=== PATIENT | female | born 1970 | race Caucasian/White ===

== ENCOUNTER 2018-10-22 12:41 | Inpatient (IN) | payer BC, SELFPAY ==
[2018-10-22] VITALS (7 sets, daily range): BP systolic 114–121; BP diastolic 68–78; PULSE 90–98; RESP 16–18; TEMP 37.2–37.3; O2SAT 96–99; BMI 19.3
--- NOTE | 2018-10-22 13:15 | PCM.HP.STD ---
Problem List (1) Small bowel obstruction due to adhesions Status: Acute (2) Acute dehydration Status: Acute (3) Hyponatremia Status: Acute (4) Hypochloremia Status: Acute (5) Hypokalemia Status: Acute (6) Hypokalemia due to loss of potassium Status: Acute History of Present Illness Date of Admission: 10/22/18 The patient is a 48 year old F who was transferred from [facility] for urgent surgical evaluation and management. The patient states that she does not have a routine primary care physician. In the past she has been seen at the [facility] but has not had a physician since Dr. Constance Smith left. The patient states that this is now day 6 of her illness. She has had intractable nausea and vomiting. Yesterday the cramping in her abdomen became extraordinarily severe. She did not seek assistance until going to [place] emergency room earlier today today. Her white blood cell count was noted to be relatively low at 4.9 with a hemoglobin elevated at 16.8 and hematocrit elevated at 47.7. Platelet count 267,000. 75% neutrophils 6% lymphocytes and 18% monocytes. Her sodium was low at 125. Potassium low at 3.2. Chloride low at 80. BUN elevated to 35. Creatinine elevated at 1.5. Albumin elevated at 5.3 and total protein elevated at 8.9. She had a CT scan of the abdomen pelvis performed there. Multiple dilated loops of small bowel with air-fluid levels. Dilated small bowel up to 3.8 cm in the pelvis and up to 4.8 cm in the right upper quadrant findings were felt to be consistent with a high-grade small bowel obstruction. It is of note that I have assisted the patient in May 2011. She had undergone per Dr. Vences a laparoscopic salpingo-oophorectomy and then had a postop hemorrhage. I performed a urgent exploratory laparotomy. A precise source of blood loss was not clearly identified. She was managed with transfusions and then did require transfer out because of the amount of blood loss and acute anticoagulated state. She had not previously had any abdominal surgery prior to that. It is of note that the patient continued to have pain subsequent to that and eventuated is having a vaginal hysterectomy also performed at [facility]. She had had a previous uterine ablation and it was felt that that was the source of her pelvic pain. Since her hysterectomy she has been relieved of the pain. Because of her previous emergency exploratory laparotomy she was not felt to be a candidate for any transabdominal approach to her hysterectomy. The patient denies any previous hospitalizations for small bowel obstruction. She denies any history of illness similar to this. She states that yesterday the pain was very severe. This morning she said that she had multiple repetitive bilious emesis and now actually feels improved. Written report detected after NG tube placement at [facility] she had 1 L of bilious material out with now very little return. The patient states that currently the NG tube is causing her discomfort but that she is not having significant abdominal pain. She cannot recall when she had her last flatus or bowel movement. Past Medical History Allergies ketamine Adverse Reaction (Verified 10/22/18 12:53) Nausea/Vom/Diarrhea Home Medications: Ambulatory Orders Medication Instructions Recorded Cyanocobalamin (Vitamin B-12) 1,000 mcg PO DAILY 10/22/18 [Vitamin B-12] Doxycycline Hyclate 20 mg PO DAILY 10/22/18 Lactobacillus Acidophilus 1 each PO DAILY 10/22/18 [Probiotic] Multivitamin [Once Daily] 1 each PO DAILY 10/22/18 Sertraline HCl [Zoloft] 100 mg PO DAILY 10/22/18 Surgical History: no surgical history Smoking Status: Never smoker Review of Systems Constitutional: Denies: Chills, Fever HEENT: Denies: Difficulty Swallowing Cardiovascular: Denies: Chest Pain, Claudication Respiratory: Denies: Cough Gastrointestinal: Reports: Abdominal Pain, Vomiting. Denies: Diarrhea Genitourinary: Denies: Dysuria Skin: Denies: Jaundice Neurological: Denies: Balance problems Psychiatric: Denies: Anxiety Endocrine: Denies: Change in Body Habitus VTE Information - Inpt Only VTE Present on Admission: No Patient Problems: Active and Suspected Problems Small bowel obstruction due to adhesions (Acute) Acute dehydration (Acute) Hyponatremia (Acute) Hypochloremia (Acute) Hypokalemia (Acute) Hypokalemia due to loss of potassium (Acute) - Physical Exam General: Alert, Oriented x3, Cooperative, - - Patient appears uncomfortable with NG tube in place HEENT: Atraumatic Oral: Dry Mucosa Neck: Supple, Negative Carotid Bruits Lungs: Clear to auscultation, Normal air movement Cardiovascular: Regular rate, Regular Rhythm Abdomen: Bowel Sounds Not Present, Distended, - - Diffusely distended. No bowel sounds. Mild diffuse tenderness slightly more so right lower quadrant. Mild guarding. No rebound. Long midline incision extending from superior to the umbilicus to the pubis. No palpable fascial defect. Groins supple nontender no focal mass Extremities: No clubbing Skin: No rashes Musculoskeletal: No Tenderness to Palpation of Joints or Extremities Lymphatic: No Cervical, Supraclavicular, or Inguinal Adenopathy Neurological: Cranial nerves II-XII grossly intact Psych/Mental Status: Normal Affect, Appropriate Vital Signs Temp Pulse Resp BP Pulse Ox 99.2 F H 98 16 121/78 H 98 10/22/18 12:57 10/22/18 12:57 10/22/18 12:57 10/22/18 12:57 10/22/18 12:57 Oxygen Delivery Method Room Air Weight: 112 lb 6.972 oz Body Mass Index (BMI) 19.3 Intake and Output for Last 24 Hours 10/20/18 10/21/18 10/22/18 23:59 23:59 23:59 Output Total 200 / 200 Balance -200 / -200 Assessment/Plan All Active Problems Small bowel obstruction due to adhesions (Acute) Acute dehydration (Acute) Hyponatremia (Acute) Hypochloremia (Acute) Hypokalemia (Acute) Hypokalemia due to loss of potassium (Acute) Findings are consistent with now a 6-day-old acute small bowel obstruction likely secondary to previous adhesions. She has electrolyte abnormalities related to intractable nausea and vomiting and inability of oral intake. The CT scan of her abdomen was quite remarkable with significant distended bowel however she is not currently complaining of abdominal pain. I recommend this moment that secondary to her severe dehydration and electrolyte abnormality that we replace and resuscitate. I will repeat laboratory and obtain a lactic acid level. Pending the patient's response to resuscitation she is aware that she may still be benefited from a exploratory laparotomy for intended lysis of adhesions and release of small bowel obstruction. Clinically however her abdomen does not appear to be overtly acute at this time. She will require very careful observation. She has had an opportunity to ask and have questions answered. We will continue the resuscitation repeat laboratory and make further decisions based upon her immediate progress. Kiko Liao M.D., F.A.C.S.
[2018-10-22 13:50] LABS: Absolute Lymphocyte Count 1.09 X10^3/ul (0.83-4.51); Absolute Neutrophil Count 3.3 X10^3/uL (2.0-7.7); Differential Indicated SCAN CRITERIA MET; Hematocrit 41.8 % (37-47); Hemoglobin 14.6 g/dl (12.0-15.0); Lymphocyte # 1.09 X10^3/ul (4.0); Lymphocyte % 24.1 % (19-41); Mean Corp Hgb Conc 34.9 g/gl (32-36); Mean Corpuscular Hgb 32.6 pg (27.0-32.0); Mean Corpuscular Volume 93.3 fL (81-99); Mean Platelet Vol. 10.9 fl (6.2-12.0); Monocyte# 0.11 X10^3/uL; Monocyte% 2.4 % (0-10); Neutrophil # 3.32 X10^3/uL (2.7-7.7); Neutrophil % 73.3 % (47-70); POSITIVE COUNT NO; POSITIVE DIFFERENTIAL NO; POSITIVE MORPHOLOGY YES; Platelet Count 221 K/mm3 (150-450); RBC Distribution Width CV 12.3 % (11.6-14.6); RBC Distribution Width SD 41.5 fl (35.1-43.9); Red Blood Count 4.48 M/mm3 (4.2-5.4); White Blood Count 4.5 K/mm3 (4.4-11.0)
[2018-10-22 14:04] LABS: Anion Gap 12 (5-15); BUN 22 mg/dL (7-18); BUN/Creat Ratio 22.3 RATIO (10-20); Calcium,Total 7.7 mg/dL (8.5-10.1); Chloride 90 mmol/L (98-107); Creatinine, Serum 0.99 mg/dL (0.55-1.02); EST Glomerular Filtration Rate 64 mL/min (>60); Est Glom Filt Rate - Afr Amer 77 mL/min (>60); Estimated Creatinine Clearance 55.95 ml/min; Glucose 118 mg/dL (74-106); Magnesium 2.4 mg/dL (1.6-2.6); Potassium 3.2 mmol/L (3.5-5.1); Sodium Level 130 mmol/L (136-145)
[2018-10-22 14:15] LABS: Lactic Acid 1.6 mmol/L (0.4-2.0)
[2018-10-22] MEDS: Potassium Chloride 10mEq/100mL 10 MEQ/100 ML IV.SOLN. 100 MEQ IV BOLUS ×3 (14:40→18:39)
[2018-10-22] MEDS: 0.9% Normal Saline 1,000 ML 200 ML IV (14:44)
[2018-10-22] MEDS: Magnesium Sulfate 1 GM in 0.9% Normal Saline 100 ML IV (15:35)
[2018-10-22] MEDS: 0.9% Normal Saline 1,000 ML 125 ML IV (18:39)
[2018-10-22] MEDS: LORazepam 2 MG/ML Syringe 0.5 MG IV (22:31)
[2018-10-22] MEDS: 0.9% NaCl Peripheral Flush Adult/Peds IV (22:32)
[2018-10-23] VITALS (8 sets, daily range): BP systolic 98–106; BP diastolic 52–67; PULSE 82–105; RESP 16; TEMP 36.5–37; O2SAT 93–100
--- NOTE | 2018-10-23 00:25 | NURSING ---
Gave report to Mikaela BRITO, taking over care at this time
[2018-10-23] MEDS: 0.9% Normal Saline 1,000 ML 125 ML IV (02:09)
--- NOTE | 2018-10-23 05:00 | RAD_ITS ---
STUDY: X-RAY - ABDOMEN/PELVIS REASON FOR EXAM: Female, 48 years old. Small bowel obstruction TECHNIQUE: 2 views COMPARISON: None. FINDINGS: There are numerous air-fluid levels. Small bowel obstruction suspected. There is no free intraperitoneal air. This a moderate degree of fecal stasis. There is a mild lumbar scoliosis with convexity to the left. RAD/Abd Inc Decub and/or Erect IMPRESSION: Suspicion of small bowel obstruction. Confirmation with a CT scan is suggested Electronically Signed: Miguel Bryson MD at 6:34 EST Tel , Service support ,
--- NOTE | 2018-10-23 05:37 | PCM.PN.SRG ---
Patient Problems: Active and Suspected Problems Small bowel obstruction due to adhesions (Acute) Acute dehydration (Acute) Hyponatremia (Acute) Hypochloremia (Acute) Hypokalemia (Acute) Hypokalemia due to loss of potassium (Acute) Subjective: Pt resting comfortably. Has had a small amount of flatus No current complaints. No abdominal pain or nausea - Physical Exam Abdomen: Soft, Hypoactive Bowel Sounds, - - diffusely slightly tender Vital Signs Temp Pulse Resp BP Pulse Ox 98.6 F 85 16 102/56 L 98 10/23/18 02:36 10/23/18 05:25 10/23/18 02:36 10/23/18 02:36 10/23/18 02:36 Oxygen Delivery Method Room Air Weight: 112 lb 6.972 oz Body Mass Index (BMI) 19.3 Intake and Output for Last 24 Hours 10/21/18 10/22/18 10/23/18 23:59 23:59 23:59 Intake Total 2168 / 2168 841 / 841 Output Total 1974 350 / 350 Balance 193 / 193 491 / 491 Laboratory Tests Past 24 Hrs 10/22/18 10/22/18 10/22/18 13:40 13:40 13:40 WBC 4.5 RBC 4.48 Hgb 14.6 Hct 41.8 MCV 93.3 MCH 32.6 H MCHC 34.9 RDW 12.3 RDW Differential 41.5 Plt Count 221 MPV 10.9 Immature Gran % (Auto) 0.200 Neut % (Auto) 73.3 H Lymph % (Auto) 24.1 [place] % (Auto) 2.4 Eos % (Auto) 0.0 Baso % (Auto) 0.0 Absolute Neuts (auto) 3.3 Absolute Lymphs (auto) 1.09 Total Counted Not Reportable Sodium 130 L Potassium 3.2 L Chloride 90 L Carbon Dioxide 28.0 Anion Gap 12 BUN 22 H Creatinine 0.99 Estim Creat Clear Calc 55.95 Est GFR (MDRD) Af Amer 77 Est GFR (MDRD) Non-Af 64 BUN/Creatinine Ratio 22.3 H Glucose 118 H Lactic Acid 1.6 Calcium 7.7 L Magnesium 2.4 Medical Necessity - Tobacco Use Smoking Status: Never smoker Assessment/Plan All Active Problems Small bowel obstruction due to adhesions (Acute) Acute dehydration (Acute) Hyponatremia (Acute) Hypochloremia (Acute) Hypokalemia (Acute) Hypokalemia due to loss of potassium (Acute) Need to mobilize pt AXR shows decreased small bowel loops but still present. Air seen within descending and rectosigmoid. Improved. NGT at diaphragm Will advance ngt. Continue suction for now Recheck mid day for progress Hopeful removal of ngt later today Labs pending
[2018-10-23] MEDS: 0.9% NaCl Peripheral Flush Adult/Peds IV (06:16)
[2018-10-23] MEDS: Ondansetron 4 MG/2 ML Vial IV (06:16)
[2018-10-23] MEDS: LORazepam 2 MG/ML Syringe 0.5 MG IV ×2 (06:16→22:19)
[2018-10-23] MEDS: BENZOCAINE/MENTHOL 1 LOZENGE 2 LOZENGE MUCOUS MEM (06:22)
--- NOTE | 2018-10-23 07:10 | NURSING ---
ADVANCED NGF 8CM PER ORDER. PT IS UP WALKING IN [place] WITH GAIT STEADY
[2018-10-23 07:21] LABS: Absolute Lymphocyte Count 0.59 X10^3/ul (0.83-4.51); Absolute Neutrophil Count 4.1 X10^3/uL (2.0-7.7); Basophil# 0.02 X10^3/uL; Basophil% 0.4 % (0-1); Eosinophil# 0.03 X10^3/uL; Eosinophils% 0.5 % (0-5); Hematocrit 39.5 % (37-47); Hemoglobin 13.5 g/dl (12.0-15.0); Lymphocyte # 0.59 X10^3/ul (4.0); Lymphocyte % 10.4 % (19-41); Mean Corp Hgb Conc 34.2 g/gl (32-36); Mean Corpuscular Hgb 32.8 pg (27.0-32.0); Mean Corpuscular Volume 95.9 fL (81-99); Mean Platelet Vol. 11.3 fl (6.2-12.0); Monocyte# 0.88 X10^3/uL; Monocyte% 15.5 % (0-10); Neutrophil % 72.1 % (47-70); Platelet Count 175 K/mm3 (150-450); RBC Distribution Width CV 12.4 % (11.6-14.6); RBC Distribution Width SD 42.3 fl (35.1-43.9); Red Blood Count 4.12 M/mm3 (4.2-5.4); White Blood Count 5.7 K/mm3 (4.4-11.0)
[2018-10-23 07:26] LABS: Anion Gap 11 (5-15); BUN 18 mg/dL (7-18); BUN/Creat Ratio 28.6 RATIO (10-20); Calcium,Total 7.3 mg/dL (8.5-10.1); Chloride 99 mmol/L (98-107); Creatinine, Serum 0.63 mg/dL (0.55-1.02); Differential Indicated SCAN CRITERIA MET; EST Glomerular Filtration Rate 107 mL/min (>60); Est Glom Filt Rate - Afr Amer 130 mL/min (>60); Estimated Creatinine Clearance 87.92 ml/min; Glucose 92 mg/dL (74-106); POSITIVE COUNT NO; POSITIVE DIFFERENTIAL YES; POSITIVE MORPHOLOGY YES; Potassium 2.8 mmol/L (3.5-5.1); Sodium Level 135 mmol/L (136-145)
[2018-10-23 07:51] LABS: Differential Comment SCANNED
[2018-10-23] MEDS: Potassium Chloride 10mEq/100mL 10 MEQ/100 ML IV.SOLN. 100 MEQ IV BOLUS ×6 (08:19→18:53)
[2018-10-23] MEDS: 0.9% Normal Saline 1,000 ML 80 ML IV ×2 (11:10→22:20)
[2018-10-23] MEDS: Acetaminophen 325 MG Tablet 650 MG PO (11:17)
--- NOTE | 2018-10-23 11:28 | CASEMGMT ---
ALISHA MEDLEY assessment: Face to Face with patient for initial transition planning/care coordination assessment. ALISHA MEDLEY introduced self and role at [facility], pt voices understanding and consents to assessment at this time. Pt is sitting up in chair in no distress at this time. Pt is A/Ox4 at this time and answers all questions appropriately at this time. Care providers, pharmacy, and demographics verified at this time. PCP: Devika Specialists: Keshawn, surg; deonna Roberson Preferred Pharmacy: [facility] Insurance: [place] Prescription Benefit: [place] Living Will/HPOA: Pt states has LW/HPOA and states her , Bebeto Perez, is HPOA. Pt is aware that we do not have AD on file at [facility] at this time. LNOK: Bebeto Perez, ; Sarai Freeman, mother Living Arrangements: Pt states lives with in house and states no concerns at home at this time. Pt is independent with ADL's. Transportation: Pt states drives self and states no transportation concerns at this time. DME/HHC: Pt states no current DME or need for any at this time. Pt states no hx of HHC or SNF in the past. Pt states no concerns with going home at time of discharge. 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 Pt states does not smoke but does drink ETOH, 'not always every day', per pt. Pt states no further concerns/needs at this time. Plan: [place] ALISHA MEDLEY
[2018-10-23 16:37] LABS: Potassium 3.6 mmol/L (3.5-5.1)
--- NOTE | 2018-10-23 17:13 | PCM.PN.BLA ---
Progress Note Pt re examined Abdomen still bloated but softer, Pos BS Tolerating ngt out Potassium being replaced K 3.6 Will hold at sips chips Mobilize pt
--- NOTE | 2018-10-23 22:00 | NURSING ---
pt continues to ambulate around unit halls; she and her daughter have made multiple labs around the unit. pt tolerates activity well.
[2018-10-24] VITALS (7 sets, daily range): BP systolic 102–117; BP diastolic 59–68; PULSE 83–94; RESP 16–17; TEMP 36.7–37.4; O2SAT 94–97; BMI 19.2
--- NOTE | 2018-10-24 06:54 | PCM.PN.SRG ---
Patient Problems: Active and Suspected Problems Small bowel obstruction due to adhesions (Acute) Acute dehydration (Acute) Hyponatremia (Acute) Hypochloremia (Acute) Hypokalemia (Acute) Hypokalemia due to loss of potassium (Acute) Subjective: Pt denies pain. Has continued with flatus and small amount of stool. She still feels bloated - Physical Exam Abdomen: Bowel Sounds Present, Soft, Non Tender, - - mildly distended Vital Signs Temp Pulse Resp BP Pulse Ox 98.4 F 91 16 103/59 L 97 10/24/18 05:30 10/24/18 05:30 10/24/18 05:30 10/24/18 05:30 10/24/18 05:30 Oxygen Delivery Method Room Air Weight: 112 lb 6.972 oz Body Mass Index (BMI) 19.3 Intake and Output for Last 24 Hours 10/22/18 10/23/18 10/24/18 23:59 23:59 23:59 Intake Total 2168 / 2168 2156 / 2156 1060 / 1060 Output Total 1974 / 1974 450 / 450 300 / 300 Balance 193 / 193 1706 / 1706 760 / 760 Laboratory Tests Past 24 Hrs 10/23/18 10/23/18 10/23/18 06:55 06:55 15:52 WBC 5.7 RBC 4.12 L Hgb 13.5 Hct 39.5 MCV 95.9 MCH 32.8 H MCHC 34.2 RDW 12.4 RDW Differential 42.3 Plt Count 175 MPV 11.3 Immature Gran % (Auto) 1.100 H Neut % (Auto) 72.1 H Lymph % (Auto) 10.4 L [place] % (Auto) 15.5 H Eos % (Auto) 0.5 Baso % (Auto) 0.4 Absolute Neuts (auto) 4.1 Absolute Lymphs (auto) 0.59 L Total Counted Not Reportable Differential Comment SCANNED Sodium 135 L Potassium 2.8 L 3.6 Chloride 99 Carbon Dioxide 25.0 Anion Gap 11 BUN 18 Creatinine 0.63 Estim Creat Clear Calc 87.92 Est GFR (MDRD) Af Amer 130 Est GFR (MDRD) Non-Af 107 BUN/Creatinine Ratio 28.6 H Glucose 92 Calcium 7.3 L Medical Necessity - Tobacco Use Smoking Status: Never smoker Assessment/Plan All Active Problems Small bowel obstruction due to adhesions (Acute) Acute dehydration (Acute) Hyponatremia (Acute) Hypochloremia (Acute) Hypokalemia (Acute) Hypokalemia due to loss of potassium (Acute) Will start clears and advance as tolerated SBO is improved but not completely resolved
[2018-10-24 07:07] LABS: Potassium 3.4 mmol/L (3.5-5.1)
[2018-10-24] MEDS: Potassium Chloride 10mEq/100mL 10 MEQ/100 ML IV.SOLN. 100 MEQ IV BOLUS ×6 (09:05→22:09)
--- NOTE | 2018-10-24 10:41 | NURSING ---
Pt resting in bed working on her laptop. Pt receiving 2 more potassium chloride 10meq bags per order from Dr. Liao for K+ 3.4 this AM. Pt denies pain or burning at infusion site, tolerating well. VSS.
--- NOTE | 2018-10-24 11:32 | NURSING ---
PT UP AMBULATING IN [place], TOLERATING WELL.
[2018-10-24] MEDS: Acetaminophen 325 MG Tablet 650 MG PO ×2 (13:59→22:06)
[2018-10-24] MEDS: LORazepam 2 MG/ML Syringe 0.5 MG IV ×2 (14:17→22:07)
--- NOTE | 2018-10-24 14:21 | NURSING ---
Pt's daughter in the room. Pt c/o pain in her abdomen all quadrants, rates a 3 on pain scale. States aching and stabbing at times. Given Tylenol 650mg po per order. Pt requesting Ativan so she can rest. Given Ativan 0.5mg IV per order.
--- NOTE | 2018-10-24 15:11 | NURSING ---
Pt sleeping quietly, daughter in room. Daughter states her mom is feeling better. Pt not awakened at this time for assessment of pain control.
--- NOTE | 2018-10-24 16:10 | NURSING ---
Pt awake c/o abdominal pain, rates a 6 on pain scale. BS hyperactive x 4, abd distended, soft and tender. Will notify Dr. Liao of changes.
--- NOTE | 2018-10-24 17:55 | PN_ITS ---
Progress Note Notified that patient mid afternoon has developed nausea cramping and recurrent abdominal distention She felt extremely well this morning. No pain whatsoever. We initiated her on clear liquids. She was ambulating well. She states that approximately 130 she developed some cramping. She did pass a moderate stool and had flatus. Now she has not had flatus for at least 4-5 hours. She feels nauseated.. She has an emesis bag at the ready. She states her pain is a 6. It is similar to previous pain episodes that she has had in between times of previous emesis. Patient looks uncomfortable but not in distress Abdomen is now more distended. She is not focally tender to palpation. Bowel sounds are intermittent with tinkles and rushes. At this point it appears that her small bowel obstruction is failing conservative measures. She has had her sodium and chloride and potassium previously replaced. I am recommending a NG tube be placed to low continuous suction. A abdominal x- rays will be checked with that placement. I will obtain stat BMP and CBC and lactic acid level. If that is dramatically abnormal then recommend proceeding later tonight with exploratory laparotomy. Unfortunately the current OR situation is occupied anticipated to approximately 10 PM. If the patient is improved with NG tube decompression as she was before and if the laboratory is not remarkable that I recommend decompression of the stomach and small bowel again hopefully allowing for a less risky expiration. I would then recommend exploratory laparotomy tomorrow as OR timing permits. The patient and her are aware of the technique, benefits, risks, alternatives. I have ordered stat laboratory NG tube and x-ray. We will proceed pending those results. Kiko Liao M.D., F.A.C.S.
[2018-10-24] MEDS: Lactated Ringers 1,000 ML 100 ML IV (18:06)
[2018-10-24 18:28] LABS: Anion Gap 11 (5-15); BUN 9 mg/dL (7-18); BUN/Creat Ratio 17.5 RATIO (10-20); Chloride 103 mmol/L (98-107); Creatinine, Serum 0.51 mg/dL (0.55-1.02); EST Glomerular Filtration Rate 136 mL/min (>60); Est Glom Filt Rate - Afr Amer 164 mL/min (>60); Estimated Creatinine Clearance 108.61 ml/min; Glucose 94 mg/dL (74-106); Potassium 3.2 mmol/L (3.5-5.1); Sodium Level 138 mmol/L (136-145)
[2018-10-24 18:36] LABS: Absolute Neutrophil Count 2.4 X10^3/uL (2.0-7.7); Basophil# 0.01 X10^3/uL; Basophil% 0.3 % (0-1); Eosinophil# 0.09 X10^3/uL; Eosinophils% 2.3 % (0-5); Hematocrit 39.6 % (37-47); Hemoglobin 13.4 g/dl (12.0-15.0); Lymphocyte % 17.5 % (19-41); Mean Corp Hgb Conc 33.8 g/gl (32-36); Mean Corpuscular Hgb 32.1 pg (27.0-32.0); Mean Platelet Vol. 10.8 fl (6.2-12.0); Monocyte% 20.1 % (0-10); Neutrophil # 2.38 X10^3/uL (2.7-7.7); Neutrophil % 59.5 % (47-70); Platelet Count 211 K/mm3 (150-450); RBC Distribution Width CV 12.4 % (11.6-14.6); RBC Distribution Width SD 42.8 fl (35.1-43.9); Red Blood Count 4.17 M/mm3 (4.2-5.4)
[2018-10-24 18:39] LABS: POSITIVE COUNT NO; POSITIVE DIFFERENTIAL NO; POSITIVE MORPHOLOGY NO
--- NOTE | 2018-10-24 19:01 | RAD_ITS ---
STUDY: X-RAY - ABDOMEN/PELVIS REASON FOR EXAM: Female, 48 years old. NG tube placement TECHNIQUE: 1 view COMPARISON: None. FINDINGS: The enteric tube is well below the gastroesophageal junction with one broad loop in the upper portion of the stomach. Multiple distended small bowel loops remain visualized in the central upper abdomen and a paucity of visible colon content consistent with small bowel obstruction. There is no demonstrated free abdominal air. Negative for gross organomegaly. Normal soft tissue structures. Normal visualized osseous structures. RAD/Abdomen Single View (Portable) IMPRESSION: The enteric tube is well below the gastroesophageal junction with one broad loop in the upper portion of the stomach. Radiographic findings consistent with small bowel obstruction. Electronically Signed: Belén Card MD at 19:48 EST , Service support ,
--- NOTE | 2018-10-24 19:03 | NURSING ---
NG TUBE INSERTED IN LEFT NARE PER TOYA RN, PER PHYSICIAN ORDER, RETURN OF 300CC OR GREEN FLUID, PT HAD ABOUT 500CC EMESIS (GREEN FLUID) DURING INSERTION. SUPPORT GIVEN.
--- NOTE | 2018-10-24 19:40 | PCM.PN.BLA ---
Progress Note Will replace K and plan exploratory lap tomorrow. Lactic acid only 1 R.Keshawn
[2018-10-24] MEDS: 0.9% NaCl Peripheral Flush Adult/Peds IV (22:18)
[2018-10-25] VITALS (9 sets, daily range): BP systolic 101–115; BP diastolic 62–80; PULSE 85–103; RESP 15–18; TEMP 36.2–37.4; O2SAT 94–100
[2018-10-25] MEDS: 0.9% NaCl Peripheral Flush Adult/Peds IV ×4 (01:57→05:40)
[2018-10-25] MEDS: HYDROmorphone 1 MG/ML Syringe IV ×5 (02:33→23:26)
[2018-10-25] MEDS: Lactated Ringers 1,000 ML 100 ML IV ×2 (03:03→16:28)
--- NOTE | 2018-10-25 05:39 | PCM.PN.SRG ---
Patient Problems: Active and Suspected Problems Small bowel obstruction due to adhesions (Acute) Acute dehydration (Acute) Hyponatremia (Acute) Hypochloremia (Acute) Hypokalemia (Acute) Hypokalemia due to loss of potassium (Acute) Subjective: Pt c/o left nares pain with ngt Less nausea and much less abdominal pain with decompression - Physical Exam Abdomen: Soft, Non Tender, Hypoactive Bowel Sounds Vital Signs Temp Pulse Resp BP Pulse Ox 98.8 F 103 H 16 115/74 95 10/25/18 03:00 10/25/18 03:00 10/25/18 03:00 10/25/18 03:00 10/25/18 03:00 Oxygen Delivery Method Room Air Weight: 112 lb 6.972 oz Body Mass Index (BMI) 19.2 Intake and Output for Last 24 Hours 10/23/18 10/24/18 10/25/18 23:59 23:59 23:59 Intake Total 2156 / 2156 3196 / 3196 Output Total 450 / 450 1450 / 1450 Balance 1706 / 1706 1746 / 1746 Laboratory Tests Past 24 Hrs 10/24/18 10/24/18 10/24/18 06:50 18:07 18:07 WBC 4.0 L RBC 4.17 L Hgb 13.4 Hct 39.6 MCV 95.0 MCH 32.1 H MCHC 33.8 RDW 12.4 RDW Differential 42.8 Plt Count 211 MPV 10.8 Immature Gran % (Auto) 0.300 Neut % (Auto) 59.5 Lymph % (Auto) 17.5 L [place] % (Auto) 20.1 H Eos % (Auto) 2.3 Baso % (Auto) 0.3 Absolute Neuts (auto) 2.4 Absolute Lymphs (auto) 0.70 L Total Counted Not Reportable Sodium 138 Potassium 3.4 L 3.2 L Chloride 103 Carbon Dioxide 24.0 Anion Gap 11 BUN 9 Creatinine 0.51 L Estim Creat Clear Calc 108.61 Est GFR (MDRD) Af Amer 164 Est GFR (MDRD) Non-Af 136 BUN/Creatinine Ratio 17.5 Glucose 94 Lactic Acid Calcium 8.0 L 10/24/18 18:07 WBC RBC Hgb Hct MCV MCH MCHC RDW RDW Differential Plt Count MPV Immature Gran % (Auto) Neut % (Auto) Lymph % (Auto) [place] % (Auto) Eos % (Auto) Baso % (Auto) Absolute Neuts (auto) Absolute Lymphs (auto) Total Counted Sodium Potassium Chloride Carbon Dioxide Anion Gap BUN Creatinine Estim Creat Clear Calc Est GFR (MDRD) Af Amer Est GFR (MDRD) Non-Af BUN/Creatinine Ratio Glucose Lactic Acid 1.0 Calcium Medical Necessity - Tobacco Use Smoking Status: Never smoker Assessment/Plan All Active Problems Small bowel obstruction due to adhesions (Acute) Acute dehydration (Acute) Hyponatremia (Acute) Hypochloremia (Acute) Hypokalemia (Acute) Hypokalemia due to loss of potassium (Acute) Replacing magnesium and potassium Checking labs Plan for exploratory laparotomy today
[2018-10-25 07:14] LABS: BUN 8 mg/dL (7-18); Creatinine, Serum 0.44 mg/dL (0.55-1.02); Glucose 82 mg/dL (74-106)
[2018-10-25 07:15] LABS: Anion Gap 12 (5-15); BUN/Creat Ratio 18.1 RATIO (10-20); Calcium,Total 7.5 mg/dL (8.5-10.1); Chloride 101 mmol/L (98-107); EST Glomerular Filtration Rate 161 mL/min (>60); Est Glom Filt Rate - Afr Amer 195 mL/min (>60); Estimated Creatinine Clearance 125.89 ml/min; Potassium 3.6 mmol/L (3.5-5.1); Sodium Level 136 mmol/L (136-145)
--- NOTE | 2018-10-25 10:30 | MISC_PTH ---
PATIENT: ELIZA WELLINGTON LOC: MS3 U#:[id number] AGE/SX: 48/F ROOM: MT314 RE10/22/[address]: Dr. Kiko Liao MD : 1970 BED: 1 DIS: 10/29/2018 SPEC #: [id number] RECD: 10/27/18 09:00 STATUS: STEPHEN REMadisyn #: [id number] JAGRUTI: 10/25/18 10:[address]: Kiko Liao DEPT: SURGICAL PATHOLOGY RECD BY: Curt Richey ENTERED: 10/27/18 11:38 SP TYPE: MISC CHRISTIANO DR: Dr. Katie Fortune MD Tissues: MECKEL'S DIVERTICULUM Procedures: Surgery Specimen Level III HEADER OPERATION: Exploratory laparotomy for small bowel obstruction PRE-OP DIAGNOSIS: Small bowel obstruction TISSUE SUBMITTED: Meckel's diverticulum MICROSCOPIC DIAGNOSIS Meckel's diverticulum, excision: Small bowel diverticulum consistent with Meckel's diverticulum with associated minimal chronic inflammation. No evidence of dysplasia. AM:rg 10/28/18 COMMENT Case has been reviewed in consultation with Dr. Lindsey who concurs with the above diagnosis. IDC:CE MICROSCOPIC DESCRIPTION Slides are reviewed. GROSS DESCRIPTION Received in fixative is one container labeled with the patient's name and designated Meckel's diverticulum. The specimen consists of an irregular fragment of light concepcion, glistening soft tissue measuring 2 x 1 x 0.8 cm. The specimen is bisected along its long axis and totally submitted. / AM:cisco 10/27/18 TC:5 CPT: 33436
[2018-10-25] MEDS: BUPIVACAINE LIPOSOME/PF 20 ML VIAL OPERA.SITE (12:10)
[2018-10-25] MEDS: Bupivacaine 0.25% 30 ML Vial (12:10)
--- NOTE | 2018-10-25 12:33 | PCM.OPRPT ---
Problem List (1) Small bowel obstruction due to adhesions Status: Acute (2) Acute dehydration Status: Acute (3) Hyponatremia Status: Acute (4) Hypochloremia Status: Acute (5) Hypokalemia Status: Acute (6) Hypokalemia due to loss of potassium Status: Acute Report of Operation Date of Procedure: 10/25/18 Pre-Operative Diagnosis: Non-resolving acute small bowel obstruction Post-Operative Diagnosis: Multiple intra-abdominal adhesions. Small bowel obstruction secondary to tight adhesive band. Meckel's diverticulum Surgery/Procedure Performed:: Exploratory laparotomy with one and three-quarter hours lysis of adhesions and release of small bowel obstruction. Meckel's diverticulectomy Description of Surgical Findings:: Timeout and informed consent was obtained. 48-year-old female was taken down from placement table. She underwent general endotracheal intubation anesthesia. Cefotetan 2 g given intravenously preoperatively. The abdomen was sterilely prepped and draped. The patient has a previous infraumbilical midline incision. I elliptically excised the skin scar. The scar was inspected and discarded. Sharp dissection carried down through the subcutaneous tissue and linea alba. Immediately adhesions of small bowel and omentum to the anterior abdominal wall were encountered. Tedious sharp and blunt dissection was required to gradually free the omentum and portions of small bowel from the anterior abdominal wall. This had to be performed bilaterally. I actually had to extend the incision slightly superiorly all the way to the umbilicus in order to gain exposure. The bowel was noted to be edematous. It was rather fragile. I initiated with multiple lysis of adhesions sharply and bluntly. Multiple loops of bowel were adherent to each other and it was difficult to identify the potential site of obstruction. There were multiple areas where there appeared to be strings of fibrous tissue. It was during 1 of maneuvers to help evacuate bowel from the pelvis that a tight adhesive band in the right lower quadrant area was encountered. I released that and clearly was the source of obstruction. The bowel was impinged upon but sterile appeared to be viable. Unfortunately there were further intermittent bands that I could palpate so I continued with the sharp lysis of adhesions. The obstruction was within a foot and a half of the ileocecal valve. There was just proximal that located a Meckel's diverticulum though it did not appear to be related to the adhesive band. I performed a Meckel's diverticulectomy very simply with a TA 60 stapler. The specimen was delivered. There were then multiple loops of ileum that were densely distended and adherent to each other. I freed adhesions to the degree that I could get that portion of bowel up into the wound and exposed. There were no focal areas of obstruction with in that dense massive adhesions. The adhesions were very dense making it extraordinarily difficult to decipher one loop of bowel from the other. I felt that there was high risk of enterotomy because of the edema of the bowel and the denseness of the adhesions. There was no site of infection or obstruction. I then was able to continue to trace the bowel proximally it was adherent to the transverse and sigmoid colon continue to lyse it I found several more adhesive bands which I cannot and then finally was able to get the bowel that was distended but free in the left upper quadrant. I felt that I had cleanly release the site of obstruction had identified that although there were mild adhesions of bowel the bowel still remaining that there was no source of obstruction in that area. Having accomplished that felt that hemostasis was intact. Throughout the procedure were needed a couple small serosal areas of tenuousness were repaired with [id number] sutures of 4-0 silk several areas that required hemostasis was approximated with interrupted 4-0 silk. There were no through and through enterotomies there was no spillage of contents. The small bowel was then placed back within the abdomen. The greater omentum was placed overlying. The midline wound was closed with a running #1 PDS. Subcutaneous flaps were raised. Subcutaneous tissue approximated with several interrupted 3-0 Vicryl sutures. The skin edges proximal a running septic or 4-0 Monocryl. Prior to closure I did attempt under palpation to perform a tap block bilaterally by injecting 20 cc of Exparel mixed with 10 cc of saline and 20 cc of 0.25% Marcaine. I performed that bilaterally mostly done under palpation. I further injected the incision itself the fascia and the skin and subtenons tissue. I used an additional 10 cc of 0.25% Marcaine for that. Steri-Strips Telfa and OpSite dressing applied. Sponge and instrument and needle counts were reported the surgeon be correct. Blood loss 50 cc. She tolerated the procedure well she was taken to the recovery room in satisfactory condition without apparent complication. Because of the patient having left nares pain the NG tube during the case was moved to the right nares. By palpation I confirmed positioning in the stomach. Kiko Liao M.D., F.A.C.S. Type of Anesthesia:: General Anesthesiologist: Kvng Theodore
--- NOTE | 2018-10-25 13:00 | PCM.PN.BLA ---
Progress Note Pt has had previous medical bleeding s/p surgery Will use mobilization and scds and cancel lovenox for dvt prophylaxis secondary to extent of dissection and bleeding risk.
[2018-10-25] MEDS: LORazepam 2 MG/ML Syringe 0.5 MG IV (18:12)
[2018-10-26 02:00] VITALS: BP 108/67; PULSE 100; RESP 16; TEMP 37.3; O2SAT 95
[2018-10-26] MEDS: Lactated Ringers 1,000 ML 100 ML IV ×3 (02:11→20:37)
[2018-10-26] MEDS: Ondansetron 4 MG/2 ML Vial IV (04:36)
[2018-10-26] MEDS: HYDROmorphone 1 MG/ML Syringe IV ×4 (04:36→23:29)
[2018-10-26 06:39] LABS: Absolute Lymphocyte Count 0.79 X10^3/ul (0.83-4.51); Basophil# 0.01 X10^3/uL; Basophil% 0.1 % (0-1); Eosinophil# 0.06 X10^3/uL; Eosinophils% 0.9 % (0-5); Hematocrit 34.3 % (37-47); Hemoglobin 11.3 g/dl (12.0-15.0); Lymphocyte # 0.79 X10^3/ul (4.0); Lymphocyte % 11.7 % (19-41); Mean Corp Hgb Conc 32.9 g/gl (32-36); Mean Corpuscular Hgb 31.1 pg (27.0-32.0); Mean Corpuscular Volume 94.5 fL (81-99); Mean Platelet Vol. 10.2 fl (6.2-12.0); Monocyte# 0.95 X10^3/uL; Neutrophil # 4.96 X10^3/uL (2.7-7.7); Neutrophil % 73.2 % (47-70); Platelet Count 250 K/mm3 (150-450); RBC Distribution Width CV 12.6 % (11.6-14.6); RBC Distribution Width SD 43.9 fl (35.1-43.9); Red Blood Count 3.63 M/mm3 (4.2-5.4); White Blood Count 6.8 K/mm3 (4.4-11.0)
[2018-10-26 06:42] LABS: Differential Indicated SCAN CRITERIA MET; POSITIVE COUNT NO; POSITIVE DIFFERENTIAL NO; POSITIVE MORPHOLOGY YES
[2018-10-26 07:07] LABS: Anion Gap 14 (5-15); BUN 7 mg/dL (7-18); BUN/Creat Ratio 13.5 RATIO (10-20); Calcium,Total 7.3 mg/dL (8.5-10.1); Chloride 101 mmol/L (98-107); Creatinine, Serum 0.52 mg/dL (0.55-1.02); EST Glomerular Filtration Rate 134 mL/min (>60); Est Glom Filt Rate - Afr Amer 163 mL/min (>60); Estimated Creatinine Clearance 106.52 ml/min; Glucose 86 mg/dL (74-106); Potassium 3.6 mmol/L (3.5-5.1); Sodium Level 137 mmol/L (136-145)
[2018-10-26 07:14] LABS: Toxic Granulation RARE
--- NOTE | 2018-10-26 08:29 | PCM.PN.SRG ---
Patient Problems: Active and Suspected Problems Small bowel obstruction due to adhesions (Acute) Acute dehydration (Acute) Hyponatremia (Acute) Hypochloremia (Acute) Hypokalemia (Acute) Hypokalemia due to loss of potassium (Acute) Subjective: Patient is not passing any flatus. She has an NG tube in place still. She is complaining of diffuse abdominal pain. - Physical Exam General: Alert, Oriented x3, Cooperative Cardiovascular: Regular rate, Regular Rhythm Abdomen: Soft, Distended, Tender - Diffuse tenderness to palpation, - - Incision is clean dry and intact the dressing is dry. Vital Signs Temp Pulse Resp BP Pulse Ox 99.1 F 100 16 108/67 95 10/26/18 02:00 10/26/18 02:00 10/26/18 02:00 10/26/18 02:00 10/26/18 02:00 Oxygen Delivery Method Room Air Weight: 112 lb 6.972 oz Body Mass Index (BMI) 19.2 Intake and Output for Last 24 Hours 10/24/18 10/25/18 10/26/18 23:59 23:59 23:59 Intake Total 3196 / 3196 5347 / 5347 754 / 754 Output Total 1450 / 1450 1700 / 1700 600 / 600 Balance 1746 / 1746 3647 / 3647 154 / 154 Laboratory Tests Past 24 Hrs 10/26/18 10/26/18 06:14 06:14 WBC 6.8 RBC 3.63 L Hgb 11.3 L Hct 34.3 L MCV 94.5 MCH 31.1 MCHC 32.9 RDW 12.6 RDW Differential 43.9 Plt Count 250 MPV 10.2 Immature Gran % (Auto) 0.100 Neut % (Auto) 73.2 H Lymph % (Auto) 11.7 L [place] % (Auto) 14.0 H Eos % (Auto) 0.9 Baso % (Auto) 0.1 Absolute Neuts (auto) 5.0 Absolute Lymphs (auto) 0.79 L Total Counted Not Reportable Differential Comment Toxic Granulation RARE Sodium 137 Potassium 3.6 Chloride 101 Carbon Dioxide 22.0 Anion Gap 14 BUN 7 Creatinine 0.52 L Estim Creat Clear Calc 106.52 Est GFR (MDRD) Af Amer 163 Est GFR (MDRD) Non-Af 134 BUN/Creatinine Ratio 13.5 Glucose 86 Calcium 7.3 L Medical Necessity - Tobacco Use Smoking Status: Never smoker Assessment/Plan All Active Problems Small bowel obstruction due to adhesions (Acute) Acute dehydration (Acute) Hyponatremia (Acute) Hypochloremia (Acute) Hypokalemia (Acute) Hypokalemia due to loss of potassium (Acute) 48-year-old female small bowel obstruction status post laparotomy and lysis of adhesions, POD 1 1. Patient continues to have output from her NG but it appears clear and nonbilious. Her abdomen is still diffusely tender and she is not passing any flatus. Continue n.p.o. and NG until patient is passing flatus and less distended. Dimitrios Lopes MD Pager: [facility] [address] [place] [address], [address] [place] [phone] Office:
--- NOTE | 2018-10-26 08:45 | PN.SURG_ITS ---
Patient Problems: Active and Suspected Problems Small bowel obstruction due to adhesions (Acute) Acute dehydration (Acute) Hyponatremia (Acute) Hypochloremia (Acute) Hypokalemia (Acute) Hypokalemia due to loss of potassium (Acute) Subjective: Patient is not passing any flatus. She has an NG tube in place still. She is complaining of diffuse abdominal pain. - Physical Exam General: Alert, Oriented x3, Cooperative Cardiovascular: Regular rate, Regular Rhythm Abdomen: Soft, Distended, Tender - Diffuse tenderness to palpation, - - Incision is clean dry and intact the dressing is dry. Vital Signs Temp Pulse Resp BP Pulse Ox 99.1 F 100 16 108/67 95 10/26/18 02:00 10/26/18 02:00 10/26/18 02:00 10/26/18 02:00 10/26/18 02:00 Oxygen Delivery Method Room Air Weight: 112 lb 6.972 oz Body Mass Index (BMI) 19.2 Intake and Output for Last 24 Hours 10/24/18 10/25/18 10/26/18 23:59 23:59 23:59 Intake Total 3196 / 3196 5347 / 5347 754 / 754 Output Total 1450 / 1450 1700 / 1700 600 / 600 Balance 1746 / 1746 3647 / 3647 154 / 154 Laboratory Tests Past 24 Hrs 10/26/18 10/26/18 06:14 06:14 WBC 6.8 RBC 3.63 L Hgb 11.3 L Hct 34.3 L MCV 94.5 MCH 31.1 MCHC 32.9 RDW 12.6 RDW Differential 43.9 Plt Count 250 MPV 10.2 Immature Gran % (Auto) 0.100 Neut % (Auto) 73.2 H Lymph % (Auto) 11.7 L [place] % (Auto) 14.0 H Eos % (Auto) 0.9 Baso % (Auto) 0.1 Absolute Neuts (auto) 5.0 Absolute Lymphs (auto) 0.79 L Total Counted Not Reportable Differential Comment Toxic Granulation RARE Sodium 137 Potassium 3.6 Chloride 101 Carbon Dioxide 22.0 Anion Gap 14 BUN 7 Creatinine 0.52 L Estim Creat Clear Calc 106.52 Est GFR (MDRD) Af Amer 163 Est GFR (MDRD) Non-Af 134 BUN/Creatinine Ratio 13.5 Glucose 86 Calcium 7.3 L Medical Necessity - Tobacco Use Smoking Status: Never smoker Assessment/Plan All Active Problems Small bowel obstruction due to adhesions (Acute) Acute dehydration (Acute) Hyponatremia (Acute) Hypochloremia (Acute) Hypokalemia (Acute) Hypokalemia due to loss of potassium (Acute) 48-year-old female small bowel obstruction status post laparotomy and lysis of adhesions, POD 1 1. Patient continues to have output from her NG but it appears clear and nonbilious. Her abdomen is still diffusely tender and she is not passing any flatus. Continue n.p.o. and NG until patient is passing flatus and less distended. Dimitrios Lopes MD Pager: [facility] [address] [place] [address], [address] [place] [phone] Office:
[2018-10-26 09:00] VITALS: BP 100/65; PULSE 93; RESP 18; TEMP 37.4; O2SAT 95
[2018-10-26] MEDS: BENZOCAINE/MENTHOL 1 LOZENGE 2 LOZENGE MUCOUS MEM (09:07)
[2018-10-26] MEDS: LORazepam 2 MG/ML Syringe 0.5 MG IV ×2 (09:08→21:38)
[2018-10-26 13:22] VITALS: BP 101/64; PULSE 90; RESP 18; TEMP 37.6; O2SAT 95
[2018-10-26 18:23] VITALS: BP 118/77; PULSE 92; RESP 18; TEMP 37.5; O2SAT 100
[2018-10-26 20:33] VITALS: BP 105/67; PULSE 99; RESP 18; TEMP 36.6; O2SAT 95
[2018-10-27 02:32] VITALS: BP 111/68; PULSE 93; RESP 18; TEMP 36.7; O2SAT 95
[2018-10-27] MEDS: LORazepam 2 MG/ML Syringe 0.5 MG IV ×2 (03:50→13:01)
--- NOTE | 2018-10-27 05:56 | PN.SURG_ITS ---
Patient Problems: Active and Suspected Problems Small bowel obstruction due to adhesions (Acute) Acute dehydration (Acute) Hyponatremia (Acute) Hypochloremia (Acute) Hypokalemia (Acute) Hypokalemia due to loss of potassium (Acute) Subjective: No flatus, less abdominal pain. Majority of pain is ngt - Physical Exam General: Alert, Oriented x3, Cooperative, No apparent distress Lungs: Clear to auscultation Abdomen: Bowel Sounds Not Present, Distended, - - mildly diffusely tender Vital Signs Temp Pulse Resp BP Pulse Ox 98.1 F 93 18 111/68 95 10/27/18 02:32 10/27/18 02:32 10/27/18 02:32 10/27/18 02:32 10/27/18 02:32 Oxygen Delivery Method Room Air Weight: 112 lb 6.972 oz Body Mass Index (BMI) 19.2 Intake and Output for Last 24 Hours 10/25/18 10/26/18 10/27/18 23:59 23:59 23:59 Intake Total 5347 / 5347 2963 / 2963 Output Total 1700 / 1700 2300 / 2300 Balance 3647 / 3647 663 / 663 Laboratory Tests Past 24 Hrs 10/26/18 10/26/18 10/27/18 06:14 06:14 05:15 WBC 6.8 Pending RBC 3.63 L Pending Hgb 11.3 L Pending Hct 34.3 L Pending MCV 94.5 Pending MCH 31.1 Pending MCHC 32.9 Pending RDW 12.6 Pending RDW Differential 43.9 Pending Plt Count 250 Pending MPV 10.2 Immature Gran % (Auto) 0.100 Neut % (Auto) 73.2 H Pending Lymph % (Auto) 11.7 L [place] % (Auto) 14.0 H Eos % (Auto) 0.9 Baso % (Auto) 0.1 Absolute Neuts (auto) 5.0 Pending Absolute Lymphs (auto) 0.79 L Total Counted Not Reportable Pending Differential Comment Toxic Granulation RARE Sodium 137 Potassium 3.6 Chloride 101 Carbon Dioxide 22.0 Anion Gap 14 BUN 7 Creatinine 0.52 L Estim Creat Clear Calc 106.52 Est GFR (MDRD) Af Amer 163 Est GFR (MDRD) Non-Af 134 BUN/Creatinine Ratio 13.5 Glucose 86 Calcium 7.3 L 10/27/18 05:15 WBC RBC Hgb Hct MCV MCH MCHC RDW RDW Differential Plt Count MPV Immature Gran % (Auto) Neut % (Auto) Lymph % (Auto) [place] % (Auto) Eos % (Auto) Baso % (Auto) Absolute Neuts (auto) Absolute Lymphs (auto) Total Counted Differential Comment Toxic Granulation Sodium Pending Potassium Pending Chloride Pending Carbon Dioxide Pending Anion Gap Pending BUN Pending Creatinine Pending Estim Creat Clear Calc Est GFR (MDRD) Af Amer Pending Est GFR (MDRD) Non-Af Pending BUN/Creatinine Ratio Pending Glucose Pending Calcium Pending Medical Necessity - Tobacco Use Smoking Status: Never smoker Assessment/Plan All Active Problems Small bowel obstruction due to adhesions (Acute) Acute dehydration (Acute) Hyponatremia (Acute) Hypochloremia (Acute) Hypokalemia (Acute) Hypokalemia due to loss of potassium (Acute) No clinical changes Will continue ngt for now
[2018-10-27 06:08] LABS: Hematocrit 30.9 % (37-47); Hemoglobin 10.5 g/dl (12.0-15.0); Lymphocyte % 14.2 % (19-41); Mean Corpuscular Hgb 32.3 pg (27.0-32.0); Mean Corpuscular Volume 95.1 fL (81-99); Mean Platelet Vol. 10.1 fl (6.2-12.0); Monocyte% 10.6 % (0-10); Neutrophil % 73.3 % (47-70); Platelet Count 249 K/mm3 (150-450); RBC Distribution Width CV 12.7 % (11.6-14.6); RBC Distribution Width SD 44.6 fl (35.1-43.9); Red Blood Count 3.25 M/mm3 (4.2-5.4); White Blood Count 6.9 K/mm3 (4.4-11.0)
[2018-10-27 06:09] LABS: Absolute Lymphocyte Count 0.98 X10^3/ul (0.83-4.51); Basophil# 0.01 X10^3/uL; Basophil% 0.1 % (0-1); Eosinophil# 0.12 X10^3/uL; Eosinophils% 1.7 % (0-5); Lymphocyte # 0.98 X10^3/ul (4.0); Monocyte# 0.73 X10^3/uL; Neutrophil # 5.03 X10^3/uL (2.7-7.7)
[2018-10-27 06:12] LABS: Anion Gap 14 (5-15); BUN 7 mg/dL (7-18); Calcium,Total 7.5 mg/dL (8.5-10.1); Chloride 101 mmol/L (98-107); Creatinine, Serum 0.37 mg/dL (0.55-1.02); EST Glomerular Filtration Rate 198 mL/min (>60); Est Glom Filt Rate - Afr Amer 240 mL/min (>60); Estimated Creatinine Clearance 149.71 ml/min; Glucose 73 mg/dL (74-106); Potassium 3.2 mmol/L (3.5-5.1); Sodium Level 138 mmol/L (136-145)
[2018-10-27 06:26] LABS: POSITIVE COUNT NO; POSITIVE DIFFERENTIAL NO; POSITIVE MORPHOLOGY NO
[2018-10-27] MEDS: Lactated Ringers 1,000 ML 100 ML IV ×2 (06:39→15:44)
[2018-10-27] MEDS: HYDROmorphone 1 MG/ML Syringe IV ×2 (06:39→14:59)
[2018-10-27] MEDS: Potassium Chloride 10mEq/100mL 10 MEQ/100 ML IV.SOLN. 100 MEQ IV BOLUS ×4 (07:40→10:49)
[2018-10-27 07:44] VITALS: BP 107/71; PULSE 88; RESP 18; TEMP 36.8; O2SAT 97
[2018-10-27] MEDS: 0.9% NaCl Peripheral Flush Adult/Peds IV ×2 (13:00→14:59)
[2018-10-27 14:50] VITALS: BP 118/80; PULSE 94; RESP 18; TEMP 36.8; O2SAT 97
--- NOTE | 2018-10-27 16:30 | PCM.PN.BLA ---
Progress Note Positive flatus, feeling better, less abdominal pain PE: abdomen softer, occ BS Will remove NGT and observe
--- NOTE | 2018-10-27 17:13 | NURSING ---
NGT DC'D ORDERED
[2018-10-27] MEDS: Acetaminophen 325 MG Tablet 650 MG PO ×2 (17:18→23:02)
[2018-10-27 20:00] VITALS: BP 108/68; PULSE 89; RESP 16; TEMP 36.4; O2SAT 96
[2018-10-28 02:00] VITALS: BP 106/66; PULSE 79; RESP 16; TEMP 37.1; O2SAT 97
[2018-10-28] MEDS: Lactated Ringers 1,000 ML 30 ML IV (07:30)
[2018-10-28 07:50] LABS: Potassium 3.7 mmol/L (3.5-5.1)
--- NOTE | 2018-10-28 08:53 | PCM.PN.SRG ---
Patient Problems: Active and Suspected Problems Small bowel obstruction due to adhesions (Acute) Acute dehydration (Acute) Hyponatremia (Acute) Hypochloremia (Acute) Hypokalemia (Acute) Hypokalemia due to loss of potassium (Acute) Subjective: Patient evaluated this morning resting comfortably in bed. She had her NG tube removed last night. Patient denies nausea, vomiting. She is tolerating water well. She has not tried any Jello. Positive flatus. Negative BM. - Physical Exam General: Alert, Oriented x3, Cooperative Lungs: Clear to auscultation, Normal air movement Cardiovascular: Regular rate, No murmurs Abdomen: Hypoactive Bowel Sounds, Distended, Tender - generalized, - - Incision c/d/i. No erythema or infection noted Vital Signs Temp Pulse Resp BP Pulse Ox 98.7 F 79 16 106/66 97 10/28/18 02:00 10/28/18 02:00 10/28/18 02:00 10/28/18 02:00 10/28/18 02:00 Oxygen Delivery Method Room Air Weight: 112 lb 6.972 oz Body Mass Index (BMI) 19.2 Intake and Output for Last 24 Hours 10/26/18 10/27/18 10/28/18 23:59 23:59 23:59 Intake Total 2963 / 2963 2889 / 2889 750 / 750 Output Total 2300 / 2300 2049 / 2049 Balance 663 / 663 839 / 839 750 / 750 Laboratory Tests Past 24 Hrs 10/28/18 06:38 Potassium 3.7 Medical Necessity - Tobacco Use Smoking Status: Never smoker Assessment/Plan All Active Problems Small bowel obstruction due to adhesions (Acute) Acute dehydration (Acute) Hyponatremia (Acute) Hypochloremia (Acute) Hypokalemia (Acute) Hypokalemia due to loss of potassium (Acute) I am following this patient in conjunction with Dr. Liao. S/p day #3 diagnostic exploratory laparotomy with Meckel's diverticulectomy and lysis of adhesions Potassium normal Encourage continued ambulation and I.S. May chew gum or hard candy Continue clear liquids. May increase later today to full liquids. We will continue to monitor this patient Code Visit Inpatient E&M: 26940 Subs Hosp L1 - POST-OP
[2018-10-28 09:26] VITALS: BP 105/58; PULSE 84; RESP 18; TEMP 36.8; O2SAT 96
[2018-10-28 15:29] VITALS: BP 102/62; PULSE 80; RESP 16; TEMP 36.8; O2SAT 93
[2018-10-28 21:15] VITALS: BP 114/73; PULSE 90; RESP 18; TEMP 36.9; O2SAT 100
[2018-10-28] MEDS: LORazepam 2 MG/ML Syringe 0.5 MG IV (23:16)
[2018-10-29 03:15] VITALS: BP 106/67; PULSE 79; RESP 16; TEMP 36.8; O2SAT 96
--- NOTE | 2018-10-29 06:19 | PCM.PN.SRG ---
Patient Problems: Active and Suspected Problems Small bowel obstruction due to adhesions (Acute) Acute dehydration (Acute) Hyponatremia (Acute) Hypochloremia (Acute) Hypokalemia (Acute) Hypokalemia due to loss of potassium (Acute) Subjective: No nausea, no pain, some flatus, no stool - Physical Exam General: Alert, Oriented x3 Lungs: Clear to auscultation Abdomen: Soft, Non Tender, Hypoactive Bowel Sounds, - - incision clean Vital Signs Temp Pulse Resp BP Pulse Ox 98.2 F 79 16 106/67 96 10/29/18 03:15 10/29/18 03:15 10/29/18 03:15 10/29/18 03:15 10/29/18 03:15 Oxygen Delivery Method Room Air Weight: 112 lb 6.972 oz Body Mass Index (BMI) 19.2 Intake and Output for Last 24 Hours 10/27/18 10/28/18 10/29/18 23:59 23:59 23:59 Intake Total 2889 / 2889 1710 / 1710 1012 / 1012 Output Total 2049 / 2049 1900 / 1900 Balance 839 / 839 -190 / -190 1012 / 1012 Laboratory Tests Past 24 Hrs 10/28/18 06:38 Potassium 3.7 Medical Necessity - Tobacco Use Smoking Status: Never smoker Assessment/Plan All Active Problems Small bowel obstruction due to adhesions (Acute) Acute dehydration (Acute) Hyponatremia (Acute) Hypochloremia (Acute) Hypokalemia (Acute) Hypokalemia due to loss of potassium (Acute) Pt tolerating full liquids Will discharge today
--- NOTE | 2018-10-29 06:23 | DCINST_ITS ---
Discharge Diet: Light diet - advance as tolerated - if you have questions about your diet instructions, please talk to you doctor. Discharge Activity: May Not Drive - for 3-5 days or while taking narcotic pain medicine. May shower in (days): 0 - May shower today Lifting Restrictions: 10 pounds Call your doctor if your incision/area has: Continuous Slow Oozing, Sudden Increased Bleeding, Increased Pain/ Swelling, Increased Redness, Foul Smelling Discharge Call your doctor if you observe: Fever of 101 or Higher Suture Line Care: Avoid Pulling/Pushing, Avoid Pinching/Bending Additional Dressing/Incision Instructions:: Leave steri-strips in place for 1 week. Allergies/Adverse Reactions: Allergies ketamine Adverse Reaction (Verified 10/22/18 12:53) Nausea/Vom/Diarrhea Medications to take at Discharge Cyanocobalamin (Vitamin B-12) [Vitamin B-12] 1,000 mcg PO DAILY 10/22/18 Doxycycline Hyclate 20 mg PO DAILY 10/22/18 Lactobacillus Acidophilus [Probiotic] 1 each PO DAILY 10/22/18 Multivitamin [Once Daily] 1 each PO DAILY 10/22/18 Sertraline HCl [Zoloft] 100 mg PO DAILY 10/22/18 Primary Care Physician: Katie Fortune MD [Primary Care Provider] - Test Results: Test results from this visit will be discussed in further detail at your follow- up appointment, if applicable. Please Follow Up With: Kiko Liao MD - [phone] When: Call to make an appointment to be seen in about 10 days.
[2018-10-29 08:42] VITALS: BP 109/69; PULSE 52; RESP 18; TEMP 36.7; O2SAT 98
--- NOTE | 2018-10-29 09:43 | PCM.DC.SUM ---
Discharge Date and Diagnosis Date of Admission: 10/22/18 Date of Discharge: 10/29/18 - Primary Discharge Diagnosis Active and Suspected Problems Small bowel obstruction due to adhesions (Acute) Acute dehydration (Acute) Hyponatremia (Acute) Hypochloremia (Acute) Hypokalemia (Acute) Hypokalemia due to loss of potassium (Acute) Hospital Course and Treatment Operations: - - Exploratory laparotomy with one and three-quarter hours lysis of adhesions and release of small bowel obstruction. Meckel's diverticulectomy. Procedures: None Summary of Care Provided: The patient is a 48 year old F who presented with progressing small bowel obstruction. Patient was transferred from an outside facility. Dr. Liao performed an Exploratory laparotomy with one and three-quarter hours lysis of adhesions and release of small bowel obstruction. Meckel's diverticulectomy on 10/25/18. Patient tolerated the procedure well. Upon discharge, she denies nausea, vomiting. She is tolerating a full liquid diet. She has had positive flatus and BM. - Physical Exam General: Alert, Oriented x3, Cooperative Abdomen: Soft, Hypoactive Bowel Sounds, Distended - slightly, Tender - near incision, - - Incision c/d/i. No erythema or infection noted Vital Signs Temp Pulse Resp BP Pulse Ox 98.0 F 52 L 18 109/69 98 10/29/18 08:42 10/29/18 08:42 10/29/18 08:42 10/29/18 08:42 10/29/18 08:42 Oxygen Delivery Method Room Air Weight: 112 lb 6.972 oz Body Mass Index (BMI) 19.2 Intake and Output for Last 24 Hours 10/27/18 10/28/18 10/29/18 23:59 23:59 23:59 Intake Total 2889 / 2889 1710 / 1710 1012 / 1012 Output Total 2049 1900 / 1900 Balance 839 / 839 -190 / -190 1012 / 1012 Discharge Diet: Light diet - advance as tolerated - if you have questions about your diet instructions, please talk to you doctor. Discharge Activity: May Not Drive - for 3-5 days or while taking narcotic pain medicine. May shower in (days): 0 - May shower today Call your doctor if your incision/area has: Continuous Slow Oozing, Sudden Increased Bleeding, Increased Pain/ Swelling, Increased Redness, Foul Smelling Discharge Call your doctor if you observe: Fever of 101 or Higher Suture Line Care: Avoid Pulling/Pushing, Avoid Pinching/Bending Additional Dressing/Incision Instructions:: Leave steri-strips in place for 1 week. Home Medications: Medications to take at Discharge Cyanocobalamin (Vitamin B-12) [Vitamin B-12] 1,000 mcg PO DAILY 10/22/18 Doxycycline Hyclate 20 mg PO DAILY 10/22/18 Lactobacillus Acidophilus [Probiotic] 1 each PO DAILY 10/22/18 Multivitamin [Once Daily] 1 each PO DAILY 10/22/18 Sertraline HCl [Zoloft] 100 mg PO DAILY 10/22/18 Primary Care Physician: Katie Fortune MD [Primary Care Provider] - Please Follow Up With: Kiko Liao MD - [phone] When: Call to make an appointment to be seen in about 10 days. Disposition: Home Minutes spent on discharge:: 20 Patient Condition:: Stable Medical Necessity - Tobacco Use Smoking Status: Never smoker Meaningful Use Info Meaningful Use Diagnoses (Choose all that apply): None applicable Code Visit Inpatient E&M: 61856 Disch Hosp
== END 2018-10-29 13:30 | disposition home or self-care (01) | DRG 330 ==
LOC: PCU 10-24 18:00 → MS3 10-27 10:12
PROVIDERS: Admitting Provider Surgery; Family Provider Internal Medicine; PCP Internal Medicine; Referring Provider Surgery; Visit Provider Surgery
PROC: 0DN80ZZ Release Small Intestine, Open Approach (ICD-10-PCS; CPT 49000; principal; 2018-10-25 10:10)
DX: K56.50 Intestinal adhesions [bands], unspecified as to partial versus complete obstruction (principal); E87.1 Hypo-osmolality and hyponatremia; Q43.0 Meckel's diverticulum (displaced) (hypertrophic); E86.0 Dehydration; E87.8 Other disorders of electrolyte and fluid balance, not elsewhere classified; E87.6 Hypokalemia
CPT/HCPCS: 36415; 74018; 74019; 80048; 83605; 83735; 84132; 85025; 88304; J7030; J7040; J7120; A4216; J2405

== ENCOUNTER → 2019-01-07 07:56 | Outpatient (CLI) | payer BC, SELFPAY ==
[2018-11-07 09:03] VITALS: BMI 19.2
--- NOTE | 2019-01-07 07:58 | BI_ITS ---
MAMMOGRAPHY - BILATERAL SCREENING 3-D MUMTAZ SYNTHESIS REASON FOR EXAM: Female, 48 years old. Bilateral Screening 3-D tomosynthesis PERTINENT HISTORY: Bilateral subpectoral implants placed in 2007. TECHNIQUE: 2-D mammograms and 3-D Mumtaz synthesis of the breast (s) were performed. CAD was performed. COMPARISON: September 17, 2017, July 26, 2016 FINDINGS: The breast composition is almost entirely fat. There are stable bilateral saline subpectoral implants. No complications are noted. Scattered benign calcifications are seen. No dense spiculated masses or suspicious microcalcifications are identified. No architectural distortion is identified. There is no skin thickening or retraction. There has been no significant change since the prior study. BI/SCREENING MAMM (CAD), BILAT IMPRESSION: No mammographic signs of malignancy. Routine yearly mammograms recommended. ASSESSMENT CATEGORY: BIRADS Category 2: Benign. A letter regarding these results will be sent to the patient by the facility within 30 days. FOLLOW UP RECOMMENDATION: Yearly follow up mammogram recommended. (A) Approximately 10% of breast cancers are not detected by mammography. A normal mammogram should not delay biopsy of a clinically suspicious abnormality. Electronically Signed: Dave Gale MD at 12:54 EDT , Service support ,
== END ==
PROVIDERS: Visit Provider Obstetrics & Gynecology
DX: Z12.31 Encounter for screening mammogram for malignant neoplasm of breast (principal)
CPT/HCPCS: 77063; 77067

== ENCOUNTER → 2020-08-11 12:14 | Outpatient (CLI) | payer BC, SELFPAY ==
[2019-01-07 09:03] VITALS: BMI 19.2
--- NOTE | 2020-08-11 12:15 | BI_ITS ---
MAMMOGRAPHY - BILATERAL SCREENING REASON FOR EXAM: Female, 50 years old. Routine annual screening examination. PERTINENT HISTORY: Non-contributory. TECHNIQUE: Digital bilateral breast mumtaz (3D mammographic acquisition) in the CC and MLO projections. 2-D mediolateral oblique (MLO) and craniocaudad (CC) views of both breasts were obtained. CAD: Full Field Digital Mammography with Computer Added Detection was performed. COMPARISON: Comparison is made with prior study dated 01/07/2019 and 09/17/2017. FINDINGS: Breast Composition: There are scattered areas of fibroglandular density. There are no dominant masses or suspicious calcifications. Stable bilateral breast implants. No other significant abnormalities are identified. There has been no significant change since the prior study. BI/SCREEN MAMM (CAD) W/MUMTAZ BILAT IMPRESSION: Stable bilateral screening mammogram. Yearly follow-up mammogram recommended. (A) ASSESSMENT CATEGORY: BIRADS Category 2: Benign. A letter regarding these results will be sent to the patient by the facility within 30 days. Approximately 10% of breast cancers are not detected by mammography. A normal mammogram should not delay biopsy of a clinically suspicious abnormality. [id number] Electronically Signed: Odell Cotton, at 13:17 EDT , Service support ,
== END ==
PROVIDERS: PCP Internal Medicine; Referring Provider Obstetrics & Gynecology; Visit Provider Obstetrics & Gynecology
DX: Z12.31 Encounter for screening mammogram for malignant neoplasm of breast (principal)
CPT/HCPCS: 77063; 77067

== ENCOUNTER → 2021-08-18 11:47 | Outpatient (CLI) | payer OTHER, SELFPAY ==
--- NOTE | 2021-08-18 11:51 | BI_ITS ---
MAMMOGRAPHY - BILATERAL SCREENING REASON FOR EXAM: Female, 51 years old. Routine annual screening examination. PERTINENT HISTORY: Non-contributory. Bilateral breast implants. TECHNIQUE: Digital bilateral breast mumtaz (3D mammographic acquisition) in the CC and MLO projections. 2-D mediolateral oblique (MLO) and craniocaudad (CC) views of both breasts were obtained. CAD: Full Field Digital Mammography with Computer Added Detection was performed. COMPARISON: Comparison is made with prior study 08/11/2020 and 01/07/2019. FINDINGS: Breast Composition: There are scattered areas of fibroglandular density. There are no dominant masses or suspicious calcifications. Stable appearance of the bilateral breast implants. No other significant abnormalities are identified. There has been no significant change since the prior study. BI/SCRN MAMM (CAD)W/MUMTAZ BILAT IMPRESSION: Stable bilateral screening mammogram. Yearly follow-up mammogram recommended. (A) ASSESSMENT CATEGORY: BIRADS Category 2: Benign. A letter regarding these results will be sent to the patient by the facility within 30 days. Approximately 10% of breast cancers are not detected by mammography. A normal mammogram should not delay biopsy of a clinically suspicious abnormality. [id number] Electronically Signed: Odell Cotton MD at 12:59 EDT , Service support ,
== END ==
PROVIDERS: Referring Provider Obstetrics & Gynecology; Visit Provider Obstetrics & Gynecology
DX: Z12.31 Encounter for screening mammogram for malignant neoplasm of breast (principal)
CPT/HCPCS: 77063; 77067

== ENCOUNTER 2021-11-17 09:40 | Outpatient (CLI) | payer OTHER, SELFPAY ==
[2021-11-17 12:42] LABS: Estradiol 68.2 pg/mL; Follicle Stimulating Hormone 39.3 mIU/mL
[2021-11-22 10:08] LABS: Testosterone, % Free 2.24 % (0.50-2.80); Testosterone, Free 1.03 ng/dL (0.10-0.85); Testosterone, Total 46 ng/dL (4-50)
== END 2021-11-17 23:59 | disposition short-term general hospital (02) ==
LOC: MTLAB 09:41
PROVIDERS: PCP Internal Medicine; Referring Provider Obstetrics & Gynecology; Visit Provider Obstetrics & Gynecology
DX: N95.1 Menopausal and female climacteric states (principal)
CPT/HCPCS: 36415; 82627; 82670; 83001; 84402; 84403; 82626

== ENCOUNTER → 2022-07-02 | Outpatient (CLI) | payer OTHER, SELFPAY ==
[2022-07-02 12:21] LABS: Basophil# 0.04 X10^3/uL; Basophil% 0.5 % (0-1); Eosinophil# 0.23 X10^3/uL; Eosinophils% 3.1 % (0-5); Hematocrit 40.5 % (37-47); Hemoglobin 13.7 g/dL (12.0-15.0); Lymphocyte % 23.1 % (19-41); Mean Corp Hgb Conc 33.8 g/dL (32-36); Mean Corpuscular Hgb 33.7 pg (27.0-32.0); Mean Corpuscular Volume 99.5 fL (81-99); Mean Platelet Vol. 10.9 fl (6.2-12.0); Monocyte# 0.35 X10^3/uL; Monocyte% 4.8 % (0-10); NRBC Flagged by Analyzer 0 % (0-5); Neutrophil # 5.02 X10^3/uL (2.7-7.7); Neutrophil % 68.4 % (47-70); Platelet Count 259 K/mm3 (150-450); RBC Distribution Width CV 12.7 % (11.6-14.6); RBC Distribution Width SD 46.4 fl (35.1-43.9); Red Blood Count 4.07 M/mm3 (4.2-5.4); White Blood Count 7.4 K/mm3 (4.4-11.0)
[2022-07-02 12:53] LABS: Vitamin D,25 Hydroxy 63.9 ng/mL
[2022-07-02 13:11] LABS: ALB/GLOB Ratio 1.1 RATIO (0.9-2.4); AST(SGOT) 16 U/L (15-37); Alanine Aminotransfer ALT/SGPT 19 U/L (13-56); Alkaline Phosphatase 48 U/L (45-117); Anion Gap 7 (5-15); BUN 18 mg/dL (7-18); CPK Total, Creatine Kinase 85 U/L (26-192); Calcium,Total 9.3 mg/dL (8.5-10.1); Chloride 107 mmol/L (98-107); Creatinine, Serum 0.78 mg/dL (0.55-1.02); EST Glomerular Filtration Rate 82 mL/min (>60); Est Glom Filt Rate - Afr Amer 99 mL/min (>60); Globulin 3.6 g/dL (2.2-4.2); Glucose 97 mg/dL (74-106); Iron 92 ug/dL (50-170); Iron Binding Capacity,Total 316 ug/dL (250-450); Magnesium 2.6 mg/dL (1.6-2.6); PERCENT IRON SATURATION 29.1 % (15.0-55.0); Potassium 4.3 mmol/L (3.5-5.1); Protein, Total 7.6 g/dL (6.4-8.2); Sodium Level 140 mmol/L (136-145)
== END | disposition home or self-care (01) ==
PROVIDERS: PCP Internal Medicine; Visit Provider Internal Medicine
DX: R25.2 Cramp and spasm (principal); E55.9 Vitamin D deficiency, unspecified
CPT/HCPCS: 36415; 80053; 82306; 82550; 83540; 83550; 83735; 85025

== ENCOUNTER 2022-09-25 10:07 | Outpatient (CLI) | payer OTHER, SELFPAY ==
--- NOTE | 2022-09-25 10:09 | BI_ITS ---
MAMMOGRAPHY - BILATERAL SCREENING REASON FOR EXAM: Female, 52 years old. Routine annual screening examination. PERTINENT HISTORY: Non-contributory. History of bilateral breast implants. TECHNIQUE: Digital bilateral breast mumtaz (3D mammographic acquisition) in the CC and MLO projections. 2-D mediolateral oblique (MLO) and craniocaudad (CC) views of both breasts were obtained. CAD: Full Field Digital Mammography with Computer Added Detection was performed. COMPARISON: Comparison is made with prior examination dated 08/18/2021 and 08/11/2020. FINDINGS: Breast Composition: The breasts are heterogeneously dense, which may obscure small masses. There are no dominant masses or suspicious calcifications. Stable appearance of the bilateral breast implants with the mild calcification of the capsule. No other significant abnormalities are identified. There has been no significant change since the prior study. BI/SCRN MAMM (CAD)W/MUMTAZ BILAT IMPRESSION: Stable bilateral screening mammogram. Yearly follow-up mammogram recommended. (A) ASSESSMENT CATEGORY: BIRADS Category 2: Benign. A letter regarding these results will be sent to the patient by the facility within 30 days. Approximately 10% of breast cancers are not detected by mammography. A normal mammogram should not delay biopsy of a clinically suspicious abnormality. [id number] Electronically Signed: Odell Cotton MD at 13:36 EST ,
== END 2022-09-25 23:59 | disposition home or self-care (01) ==
LOC: OPBI 10:07
PROVIDERS: PCP Internal Medicine; Referring Provider Obstetrics & Gynecology; Visit Provider Obstetrics & Gynecology
DX: Z12.31 Encounter for screening mammogram for malignant neoplasm of breast (principal); Z98.82 Breast implant status
CPT/HCPCS: 77063; 77067

== ENCOUNTER → 2023-09-26 | Outpatient (CLI) | payer OTHER, SELFPAY ==
--- NOTE | 2023-09-26 07:36 | BI_ITS ---
MAMMOGRAPHY - BILATERAL SCREENING REASON FOR EXAM: Female, 53 years old. Routine annual screening examination. PERTINENT HISTORY: Non-contributory. Bilateral breast implants. TECHNIQUE: Digital bilateral breast mumtaz (3D mammographic acquisition) in the CC and MLO projections. 2-D mediolateral oblique (MLO) and craniocaudad (CC) views of both breasts were obtained. CAD: Full Field Digital Mammography with Computer Added Detection was performed. COMPARISON: Comparison is made with prior study dated September 25, 2022 and August 18, 2021. FINDINGS: Breast Composition: The breasts are heterogeneously dense, which may obscure small masses. There are no dominant masses or suspicious calcifications. Stable appearance of the bilateral breast implants. No other significant abnormalities are identified. There has been no significant change since the prior study. BI/SCRN MAMM (CAD)W/MUMTAZ BILAT IMPRESSION: Stable bilateral screening mammogram. Yearly follow-up mammogram recommended. (A) ASSESSMENT CATEGORY: BIRADS Category 2: Benign. A letter regarding these results will be sent to the patient by the facility within 30 days. Approximately 10% of breast cancers are not detected by mammography. A normal mammogram should not delay biopsy of a clinically suspicious abnormality. [id number] Electronically Signed: Odell Cotton MD at 9:51 EST ,
== END | disposition home or self-care (01) ==
PROVIDERS: PCP Internal Medicine; Referring Provider Obstetrics & Gynecology; Visit Provider Obstetrics & Gynecology
DX: Z12.31 Encounter for screening mammogram for malignant neoplasm of breast (principal)
CPT/HCPCS: 77063; 77067

== ENCOUNTER → 2024-10-15 | Outpatient (CLI) | payer OTHER, SELFPAY ==
--- NOTE | 2024-10-15 13:00 | BI_ITS ---
MAMMOGRAPHY - BILATERAL SCREENING 3-D TOMOSYNTHESIS REASON FOR EXAM: Female, 54 years old. screening PERTINENT HISTORY: No significant family history. TECHNIQUE: 2-D mammograms and 3-D Tomosynthesis of the breast (s) were performed. CAD was performed. COMPARISON: 09/26/2023 FINDINGS: The breast composition is composed of scattered fibroglandular density. Scattered benign calcifications are seen. No dense spiculated masses or suspicious microcalcifications are identified. No architectural distortion is identified. There is no skin thickening or retraction. There has been no significant change since the prior study. Bilateral retroglandular saline implants appear intact. BI/SCRN MAMM (CAD)W/MUMTAZ BILAT IMPRESSION: No mammographic signs of malignancy. Routine yearly mammograms recommended. ASSESSMENT CATEGORY: BIRADS Category 1: Negative. A letter regarding these results will be sent to the patient by the facility within 30 days. FOLLOW UP RECOMMENDATION: Yearly follow up mammogram recommended. (A) Approximately 10% of breast cancers are not detected by mammography. A normal mammogram should not delay biopsy of a clinically suspicious abnormality. Electronically Signed: Curt Flores MD at 19:26 EST ,
--- NOTE | 2024-10-15 13:02 | BD_ITS ---
STUDY: DUAL ENERGY X-RAY ABSORPTIOMETRY / DXA REASON FOR EXAM: Female, 54 years old. Z78.0 -- Postmenopausal status TECHNIQUE: Bone Mineral Density (BMD) measurements of lumbar spine and bilateral hips were obtained. COMPARISON: None. FINDINGS: Lumbar Spine (L1-L4): g/cm2 (0.907) / T-score (-1.8) / Z-score (-0.7) Findings are suggestive of osteopenia with a moderate fracture risk. Left Femur Total: g/cm2 (0.780) / T-score (-1.3) / Z-score (-0.7) Left Femoral Neck: g/cm2 (0.596) / T-score (-2.3) / Z-score (-1.3) Right Femur Total: g/cm2 (0.848) / T-score (-0.8) / Z-score (-0.1) Right Femoral Neck: g/cm2 (0.652) / T-score (-1.8) / Z-score (-0.7) BD/Dexa Bone Density Study IMPRESSION: The patient is considered osteopenic as outlined below according to World [employer] Organization (WHO) criteria with a moderate fracture risk. Reference Information: The T-score is the number of standard deviations above or below the standard which is normal for young adults at their peak bone mineral density. The World Health Organization (WHO) interprets the T-scores as follows: Above -1 Normal bone density Between -1 and -2.5 Osteopenia Equal to / or below -2.5 Osteoporosis As a practical clinical guideline, osteopenia may be graded as follows: Mild -1 through -1.5 Moderate -1.6 through -2.0 Severe -2.1 through -2.4 The Z-score is the number of standard deviations above or below age-matched controls. A Z-score of less than -1.5 would be considered abnormal. References: 1. NIH Osteoporosis and Related Bone Diseases www osteo.org 2. International Society for Clinical Densitometry www iscd.org 3. National Osteoporosis Foundation www nof.org Electronically Signed: Curt Flores MD at 14:16 EST ,
== END | disposition home or self-care (01) ==
LOC: OPBD 13:00
PROVIDERS: PCP Internal Medicine; Referring Provider Obstetrics & Gynecology; Visit Provider Obstetrics & Gynecology
DX: Z13.820 Encounter for screening for osteoporosis (principal); Z78.0 Asymptomatic menopausal state; Z12.31 Encounter for screening mammogram for malignant neoplasm of breast
CPT/HCPCS: 77063; 77067; 77080

== ENCOUNTER 2025-10-06 10:25 | Outpatient (CLI) | payer OTHER, SELFPAY ==
[2025-10-06 13:07] LABS: Follicle Stimulating Hormone 16.8 mIU/mL; Free T3 1.7 pg/mL (2.18-3.98)
== END 2025-10-06 23:59 | disposition home or self-care (01) ==
LOC: MTLAB 10:36
PROVIDERS: PCP Internal Medicine; Referring Provider Nurse Practitioner Family; Visit Provider Nurse Practitioner Family
DX: E34.9 Endocrine disorder, unspecified (principal)
CPT/HCPCS: 36415; 82670; 83001; 84402; 84439; 84443; 84481

== ENCOUNTER → 2025-10-18 | Outpatient (CLI) | payer OTHER, SELFPAY ==
--- NOTE | 2025-10-18 08:15 | BI_ITS ---
EXAM: SCRN MAMM (CAD)W/MUMTAZ BILAT DATE: 10/18/2025 CLINICAL HISTORY: F, Age 55 y/o , SCREEN FOR BREAST CANCER Patient has bilateral breast implants TECHNIQUE: Procedure Code: [id number] Modality: MG Procedure: SCRN MAMM (CAD)W/MUMTAZ BILAT COMPARISON: Prior exam(s) dated 08/15/2024, 09/26/2023, and 09/25/2022. FINDINGS: TISSUE DENSITY: There are scattered areas of fibroglandular density. Bilateral Breast Mammographic Findings: Both breast implants appear to be intact. Benign-appearing round microcalcifications are seen in both breast. No suspicious masses, suspicious cluster of microcalcifications, architectural distortion or secondary sign of malignancy is identified in either breast. Coarse macrocalcifications are seen in both breast and appear to be associated with the implant. BI/SCRN MAMM (CAD)W/MUMTAZ BILAT IMPRESSION: Benign screening mammogram. OVERALL FINAL ASSESSMENT BI-RADS 2: BENIGN RECOMMENDATION: Routine annual follow-up in 1 Year Additional Recommendation none A letter with findings and recommendations will be mailed to the patient. Reading Location: [id number]
--- OUTSIDE RECORDS SUMMARY | 2025-10-18 08:39 | XMS RPT_ITS | CCD ---
Author Organization [facility] Care Team Providers Care Development Expert Name Role Phone Tino Fortune MD Primary Care Provider Dr. Tino Fortune Primary Care Provider Dr. Tino Fortune Referring Provider Dr. Lindsey Denson Attending Provider [phone] Tino Fortune MD Primary Care Provider Tino Fortune MD Primary Care Provider Fast DO, Ginette A Primary Care Provider FAST, GINETTE A Referring Unavailable FAST, GINETTE A Primary Care Unavailable FAST, GINETTE DO Admitting Unavailable FAST, GINETTE DO Attending Unavailable FAST, GINETTE DO Primary Care Unavailable PONCE SANDOVAL Consulting Unavailable PROVIDER, UNKNOWN Consulting Unavailable PROVIDER, UNKNOWN Consulting Unavailable PROVIDER, UNKNOWN Consulting Unavailable Tino Fortune MD Primary Care Provider Papa AVIONIC TECHNICIAN.ANALOG IC DESIGN ENGINEER, Samantha Unavailable Peter AVIONIC TECHNICIAN.PAPER BOX CUTTER, Lona Unavailable Earl Pearl Attending Unavailable Fast, Ginette Primary Care Unavailable Earl Pearl Attending Unavailable Fast, Ginette Primary Care Unavailable Iraida Garcia Attending Unavailable Lindsey Denson Referring Unavailable Fast, Ginette Primary Care Unavailable Fast, Ginette Primary Care Unavailable Iraida Garcia Attending Unavailable Iraida Garcia Referring Unavailable SeeEarl sánchez Attending Unavailable Lindsey Denson Primary Care Unavailable SeeEarl sánchez Attending Unavailable Fast, Ginette Primary Care Unavailable SeeEarl sánchez Attending Unavailable Fast, Ginette Primary Care Unavailable Allergies Allergy Classification Reported Allergen(s) Allergy Type Date of Onset Reaction(s) Facility (7 sources) Ketamine Drug Allergy 1 Other: See Comments [facility] Work Phone: (6 sources) environmental [Other] Propensity to adverse reactions 5 [facility] Work Phone: (1 source) ALLERGIES NOT ON FILE; Translations: [ALLERGIES NOT ON FILE] Propensity to adverse reactions (disorder) [facility] Repository (1 source) Ketamine Drug Allergy [facility] Repository (1 source) Ketamine Drug Allergy [facility] Repository Medications Current Medications Medication Drug Class(es) Dates Sig (Normalized) Sig (Original) bacillus coagulans [id number] unt oral tablet (1 source) Start: 07-02-2022 Bacillus Coagulans (Digestive Advantage Probio-Pre) 800 million cell tablet Active CELL PO July 02, 2022 12:00am 24 hr buPROPion hydrochloride 150 mg extended release oral tablet (10 sources) Aminoketone Start: 01-05-2022 End: 03-05-2022 take 300 mg by mouth once daily in the morning Bupropion Hcl Discontinued 300 MG PO EVERY MORNING January 05, 2022 8:42am March 05, 2022 9:30am Start: 11-17-2021 End: 01-05-2022 take 1 tablet by mouth once daily buPROPion XL (WELLBUTRIN XL) 150 mg 24 hr tablet Take 1 tablet by mouth once daily. 11/17/2021 Active Start: 08-11-2020 End: 04-26-2021 take 1 tablet by mouth once daily in the morning Bupropion Hcl (Wellbutrin Xl) 300 mg tablet extended release 24 hr Discontinued 300 MG PO EVERY MORNING August 11, 2020 12:00am April 26, 2021 11:55am Comment on above: Take 1 tablet by escobar th once daily. cholecalciferol 0.01 mg oral capsule (1 source) Vitamin D Start: 07-02-20 take 10 ug by mouth once daily Cholecalciferol (Vitamin D3) Active 10 MCG PO DAILY July 02, 2022 12:00am FLUoxetine 20 mg oral capsule (1 source) Serotonin Reuptake Inhibitor Start: 03-05-20 take 1 capsule by mouth once daily Fluoxetine (Prozac) 20 mg capsule Active 20 MG PO DAILY March 05, 2022 12:00am lactobacillus acidophilus [id number] unt oral capsule (1 source) Start: 10-22-19 19 Lactobacillus Acidophilus Active 1 EACH PO DAILY October 22, 2018 1:00am Magnesium (1 source) Start: 07-02-20 take 200 mg by mouth once daily Magnesium Active 200 MG PO DAILY July 02, 2022 12:00am Multivitamin preparation (1 source) Start: 10-22-19 19 Multivitamin Active 1 EACH PO DAILY October 22, 2018 1:00am MULTIVITAMIN TAB (6 sources) Start: 08-02-20 05 MULTIVITAMIN TAB Take one(1) tablet daily. 0 08/02/2005 Active Comment on above: Take one(1) tablet d aily. [id number]-Alw-Fish-Kril-L ut-Zeax (1 source) Start: 07-02-20 [id number]-Xlt-Fish-Kril- Lut-Zeax Active CAP PO July 02, 2022 12:00am Ox Bile 125 mg ([employer]) (6 sources) Start: 10-15-20 Ox Bile 125 mg ([employer]) Indications: Steatorrhea Take 1 capsule three times daily with meals, or as directed by a healthcare practitioner. 10/15/2019 Active Start: 10-15-2019 Ox Bile 125 mg ([employer]) Indications: Steatorrhea Take 1 capsule three times daily with meals, or as directed by a healthcare practitioner. 0 10/15/2019 Active Comment on above: Take 1 capsule three times daily with meals, or as directed by a healthcare practitioner. resveratrol 50 mg oral capsule (1 source) Start: Resveratrol Active MG PO July 02, 2022 12:00am zolpidem tartrate 10 mg oral tablet (5 sources) gamma-Aminobutyric Acid-ergic Agonist Start: End: take 1 tablet by mouth at bedtime as needed zolpidem (AMBIEN) 10 mg Indications: Psychophysiological insomnia Take 1 tablet by mouth at bedtime as needed for up to 90 days. 30 tablet 0 07/12/2022 10/10/2022 Active Start: 11-05-2018 End: 02-15-2022 take 1 tablet by mouth at bedtime as needed zolpidem (AMBIEN) 10 mg Indications: Psychophysiological insomnia Take 1 tablet by mouth at bedtime as needed for up to 90 days. 30 tablet 0 11/17/2021 02/15/2022 Active Comment on above: Take 1 tablet by escobar at bedtime as needed for up to 90 days. Completed/Discontinued Medications Medication Drug Class(es) Dates Sig (Normalized) Sig (Original) doxycycline hyclate 20 mg oral tablet (7 sources) Tetracycline-cla ss Drug Start: 10-22-2018 End: 08-11-2020 take 20 mg by mouth once daily Doxycycline Hyclate Discontinued 20 MG PO DAILY October 22, 2018 1:00am August 11, 2020 1:08pm Start: 10-07-2015 take [address] [facility] once daily Doxycycline Monohydrate (ORACEA) 40 mg capsule Indications: Rosacea Take 1 capsule by mouth once daily. 0 10/07/2015 Active Comment on above: Take 1 capsule by [facility] once daily. sertraline 50 mg oral tablet (9 sources) Serotonin Reuptake Inhibitor Start: 08-17-2021 End: 08-17-2021 take 1 tablet by mouth once daily Sertraline (Zoloft) 50 mg tablet Discontinued 50 MG PO DAILY August 17, 2021 12:00am August 17, 2021 12:14pm Start: 02-04-2018 End: 11-17-2021 take 100 mg by mouth once daily Sertraline Discontinued 100 MG PO DAILY 90 April 26, 2021 11:55am August 17, 2021 11:53am Comment on above: Take 1 tablet by escobar once daily. 5000 mg testosterone 0.01 mg/mg topical gel (2 sources) Androgen Start: 01-05-2022 End: 07-02-2022 Testosterone Discontinued 500 MG TD EVERY MORNING 150 January 05, 2022 12:00am July 02, 2022 10:40am Start: 08-11-2020 End: 01-05-2022 Testosterone Discontinued 15 0 MG SC ONCE August 11, 2020 12:00am January 05, 2022 8:15am as a single dose 24 hr venlafaxine 37.5 mg extended release oral capsule (2 sources) Serotonin and Norepinephrine Reuptake Inhibitor Start: 12-04-2021 End: 07-02-2022 take 1 capsule by mouth once daily Venlafaxine (Effexor Xr) 37.5 mg capsule,extended release 24hr Discontinued 37.5 MG PO DAILY December 04, 2021 1:00am July 02, 2022 10:41am Start: 08-17-2021 End: 12-04-2021 take 1 capsule by mouth once daily Venlafaxine (Effexor Xr) 75 mg capsule,extended release 24hr Discontinued 75 MG PO DAILY August 17, 2021 12:00am December 04, 2021 10:33am vitamin b12 1 mg/ml oral solution (1 source) Vitamin B12 Start: 10-22-2018 End: 01-07-2019 take 1000 ug by mouth once daily Cyanocobalamin (Vitamin B-12) Discontinued 1000 MCG PO DAILY October 22, 2018 1:00am January 07, 2019 9:00am Problems Active Problems Problem Classification Problem Date Documented Date Episodic/Chronic Administrative/socia l admission (1 source) Persons encountering health services in other specified circumstances; Translations: [Other reasons for seeking consultation] Episodic Attention-deficit, conduct, and disruptive behavior disorders (1 source) Attention-deficit hyperactivity disorder, unspecified type; Translations: [Attention deficit disorder with hyperactivity] Chronic Disorders of lipid metabolism (3 sources) Hyperlipidemia; Translations: [Hyperlipidemia, unspecified] Onset: 02-19-2024 02-19-2024 Chronic Esophageal disorders (6 sources) Gastroesophageal reflux disease; Translations: [Gastro-esophageal reflux disease without esophagitis] 02-03-2009 Chronic Fluid and electrolyte disorders (5 sources) Dehydration; Translations: [Dehydration] Episodic Immunizations and screening for infectious disease (1 source) Vaccination needed; Translations: [Encounter for immunization] Episodic Intestinal obstruction without hernia (1 source) Obstruction of small intestine co-occurrent and due to peritoneal adhesions; Translations: [Intestinal adhesions [bands], unspecified as to partial versus complete obstruction] Episodic Menopausal disorders (1 source) Menopausal syndrome; Translations: [Menopausal and female climacteric states] Chronic Miscellaneous mental health disorders (2 sources) Psychophysiologic insomnia; Translations: [Psychophysiologic insomnia] Chronic Mood disorders (6 sources) Depressive disorder; Translations: [Depressive disorder] Onset: 10-07-2015 10-07-2015 Chronic Nutritional deficiencies (1 source) Vitamin D deficiency, unspecified; Translations: [Unspecified vitamin D deficiency] Chronic Other aftercare (6 sources) Patient encounter status; Translations: [Other alf (current) drug therapy] Episodic Other connective tissue disease (1 source) Cramp and spasm; Translations: [Cramp of limb] Episodic Residual codes; unclassified (1 source) Reduced libido; Translations: [Decreased libido] Episodic Past or Other Problems Problem Classification Problem Date Documented Da te Episodic/Chronic Malaise and fatigue (6 sources) Fatigue; Translations: [Other fatigue] Onset: 02-19-2019 02-19-2019 Episodic Other non-traumatic joint disorders (6 sources) Pain in unspecified knee; Translations: [Pain in joint, lower leg] Onset: 02-19-2019 02-19-2019 Episodic Other screening for suspected conditions (not mental disorders or infectious disease) (1 source) Encounter for screening for osteoporosis; Translations: [Encounter for screening for osteoporosis] Onset: 11-12-2024 Episodic Spondylosis; intervertebral disc disorders; other back problems (1 source) Cervico-occipital neuralgia; Translations: [Occipital neuralgia] Onset: 04-26-2016 Resolved: 02-04-2018 02-04-2018 Episodic Results Test Name Value Interpretation Reference Range Facility MR/BMS.BPon 07-14-2025 MR/BMS.BP [address] [place] [address] OFFICE VISIT Date of Service: 07/14/25 MR#: [id number] Acct: [id number] Name: ELIZA PEREZ Rep #: [id number] : 1970 Provider: Dr. Earl Garcia se DO Age/Sex: 55/F Location: [facility].BP Status: Signed Intake Vital Signs 05/11/25 08:31 07/14/25 09:00 Height 5 ft 4 in 5 ft 4 in Weight: 125 lb 120 lb BMI 21.4 20.5 BP 98/64 96/68 Blood Pressure Location Lt brachial Lt brachial Position Sitting Sitting Respiration 16 16 Pulse 66 71 Pulse Source Monitor Monitor BP Intake Visit Reasons: 3 M FU Accompanied by: Self Allergies ketamine Adverse Reaction (Verified 07/14/25 09:02) Nausea/Vom/Diarrhea Medications ???Medication ???Instructions ???Recorded ???Confirmed ???Type multivitamin 1 ea PO DAILY SUPPLEMENT 10/22/18 07/14/25 History Bacillus coagulans 800 million cell PO 07/02/22 07/14/25 History cell tablet (Digestive Advantage Probiotics-Prebiotic) cholecalciferol (vitamin D3) 10 10 mcg PO DAILY 07/02/22 07/14/25 History mcg (400 unit) capsule magnesium 200 mg tablet 200 mg PO DAILY 07/02/22 07/14/25 History omega-3 375mg-dha,epa cap PO 07/02/22 07/14/25 History 350mg-fish,krill 500mg-lutein,zeax 30mg capsule resveratrol 50 mg capsule mg PO 07/02/22 07/14/25 History trazodone 50 mg tablet 50 mg PO QHS 02/18/25 07/14/25 His tory buspirone 15 mg tablet 15 mg PO TID 05/11/25 07/14/25 His tory escitalopram oxalate 10 mg tablet 10 mg PO QDAY #90 tabs 07/14/25 0 07/14/25 Rx progesterone micronized 100 mg 100 mg PO QAM 07/14/25 07/14/25 Hi story capsule PFSH Medical History (Updated 03/01/25 @ 06:[address] 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 Has had some improvement with the use of lexapro to this point. Doesn't feel as sad or tearful as she had been previously. Does still get luna but not as rageful. 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 Still struggles with poor motivation. Denies significant side effects from medications at this time. Denies SI/HI or AVH. Review of Systems Constitutional Denies: fever(s), chills, change in weight or fatigue Eyes Denies: change in vision or blurry vision Ears, Nose, Mouth, Throat Denies: throat pain, neck pain or change in hearing Cardiovascular Denies: chest pain, palpitations or dyspnea Respiratory Denies: dyspnea, cough or wheezing Gastrointestinal Denies: abdominal pain, nausea, vomiting or constipation Genitourinary Denies: dysuria or urinary frequency Musculoskeletal Denies: back pain, neck pain, joint pain or muscle weakness Integumentary/Breast Denies: rash or new lesions Neurological Denies: headache(s), dizziness or confusion Endocrine Denies: fatigue or excessive sweating Hematologic/Lymphatic Denies: easy bruising or easy bleeding Allergic/Immunologic Denies: wheezing Exam Mental Status Exam - Psych Appearance casually dressed and no apparent distress Attitude cooperative and calm Activity/Motor Behavior MSE activity/motor behavior finding no adventitious movements Speech regular rate, regular volume and regular prosody Mood OK Affect congruent Thought Process linear, logical and coherent Thought Content no delusions and no hallucinations Suicidal Ideation none Homicidal Ideation none Attention intact Concentration intact Sensorium/Orien (more content not included)... Normal [facility] MR/BMS.BPon 05-11-2025 MR/BMS.BP [facility] [address], [address] [place] [address] OFFICE VISIT Date of Service: 05/11/25 MR#: [id number] Acct: [id number] Name: ELIZA PEREZ Rep #: [id number] : 1970 Provider: Dr. Earl Garcia se, DO Age/Sex: 55/F Location: BMS.BP Status: Signed Intake Vital Signs 02/18/25 09:03 05/11/25 08:31 Height 5 ft 4 in 5 ft 4 in Weight: 127 lb 125 lb BMI 21.8 21.4 BP 103/69 98/64 Blood Pressure Location Lt brachial Lt brachial Position Sitting Sitting Respiration 16 16 Pulse 70 66 Pulse Source Monitor Monitor BP Intake Visit Reasons: 3 M FU Accompanied by: Self Allergies ketamine Adverse Reaction (Verified 05/11/25 08:48) Nausea/Vom/Diarrhea Medications ???Medication ???Instructions ???Recorded ???Confirmed ???Type multivitamin 1 ea PO DAILY SUPPLEMENT 10/22/18 05/11/25 History Bacillus coagulans 800 million cell PO 07/02/22 05/11/25 History cell tablet (Digestive Advantage Probiotics-Prebiotic) cholecalciferol (vitamin D3) 10 10 mcg PO DAILY 07/02/22 05/11/25 History mcg (400 unit) capsule magnesium 200 mg tablet 200 mg PO DAILY 07/02/22 05/11/25 History omega-3 375mg-dha,epa cap PO 07/02/22 05/11/25 History 350mg-fish,krill 500mg-lutein,zeax 30mg capsule resveratrol 50 mg capsule mg PO 07/02/22 05/11/25 History Femring 0.1 mg/24 hr vaginal 1 vag ring vaginal [id number] #1 ea 10/27/24 05/11/25 Rx (estradiol acetate) vilazodone 10 mg tablet 10 mg PO QDAY #90 tabs 01/28/25 Rx alprazolam 0.5 mg tablet 0.5 mg PO QDAY PRN anxiety #5 tabs 02/18/25 05/11/25 Rx trazodone 50 mg tablet 50 mg PO QHS 02/18/25 05/11/25 His tory buspirone 15 mg tablet 15 mg PO TID 05/11/25 05/11/25 His tory escitalopram oxalate 5 mg tablet 5 mg PO QDAY #30 tabs 05/11/25 Rx PFSH Medical History (Updated 03/01/25 @ 06:[address] 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 Patient could not tolerate Wellbutrin secondary to problems with sleep so discontinued. PCP who has prescribed buspirone but felt that effects were minimal. Did go to [place] and had a good time. Daughter is due in August and other daughter is set to start law school in [place] come this fall. Sleep has been great with use of trazodone and oral progesterone. Feels like she is irritable and doesn't want to talk to people. Has tried several medications in past with largely ineffectiveness or side effects. Denies SI/HI or AVH. Review of Systems Constitutional Denies: fever(s), chills, change in weight or fatigue Eyes Denies: change in vision or blurry vision Ears, Nose, Mouth, Throat Denies: throat pain, neck pain or change in hearing Cardiovascular Denies: chest pain, palpitations or dyspnea Respiratory Denies: dyspnea, cough or wheezing Gastrointestinal Denies: abdominal pain, nausea, vomiting or constipation Genitourinary Denies: dysuria or urinary frequency Musculoskeletal Denies: back pain, neck pain, joint pain or muscle weakness Integumentary/Breast Denies: rash or new lesions Neurological Denies: headache(s), dizziness or confusion Endocrine Denies: fatigue or excessive sweating Hematologic/Lymphatic Denies: easy bruising or easy bleeding Allergic/Immunologic Denies: wheezing Exam Mental Status Exam - Psych Appearance casually dressed and no apparent distress Attitude cooperative and calm Activity/Motor Behavior MSE activity/motor behavior finding no adventitious movements Spee (more content not included)... Normal [facility] MR/BMS.BPon 02-18-2025 MR/BMS.BP [facility] [address], [address] [place] [address] OFFICE VISIT Date of Service: 02/18/25 MR#: [id number] Acct: [id number] Name: ELIZA PEREZ Rep #: [id number] : 1970 Provider: Dr. Earl Garcia se, Age/Sex: 54/F Location: [facility] Status: Signed Intake Vital Signs 11/02/24 09:03 02/18/25 09:03 Height 5 ft 4 in 5 ft 4 in Weight: 127 lb BMI 21.8 BP 103/69 Blood Pressure Location Lt brachial Position Sitting Respiration 16 Pulse 70 Pulse Source Monitor BP Intake Visit Reasons: 4 M FU Accompanied by: Self Allergies ketamine Adverse Reaction (Verified 02/18/25 09:05) Nausea/Vom/Diarrhea Medications ???Medication ???Instructions ???Recorded ???Confirmed ???Type multivitamin 1 ea PO DAILY SUPPLEMENT 10/22/18 10/02/24 History Bacillus coagulans 800 million cell PO 07/02/22 10/02/24 History cell tablet (Digestive Advantage Probiotics-Prebiotic) cholecalciferol (vitamin D3) 10 10 mcg PO DAILY 07/02/22 10/02/24 History mcg (400 unit) capsule magnesium 200 mg tablet 200 mg PO DAILY 07/02/22 10/02/24 History omega-3 375mg-dha,epa cap PO 07/02/22 10/02/24 History 350mg-fish,krill 500mg-lutein,zeax 30mg capsule resveratrol 50 mg capsule mg PO 07/02/22 10/02/24 History Femring 0.1 mg/24 hr vaginal 1 vag ring vaginal [id number] #1 ea 10/27/24 Rx (estradiol acetate) vilazodone 10 mg tablet 10 mg PO QDAY #90 tabs 01/28/25 R x alprazolam 0.5 mg tablet 0.5 mg PO QDAY PRN anxiety #5 tabs 02/18/25 02/18/25 Rx trazodone 50 mg tablet 50 mg PO QHS 02/18/25 02/18/25 His tory [facility] Medical History (Updated 03/01/25 @ 06:[address] 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 Saw her PCP last week and has had a sleep study ordered. Also was started on trazodone last week. Getting more than 5 hours at night which is good. Will be leaving for [place] in the near future, and will be taking her son and his girlfriend and his parents. Mood is fair. Does have cyclical mood symptoms. Does feel like vilazodone is helpful, however does still have some issues with modafinil. Denies significant side effects from medication. Oldest child is currently so will become a grandmother in the near future. Review of Systems Constitutional Denies: fever(s), chills, change in weight or fatigue Eyes Denies: change in vision or blurry vision Ears, Nose, Mouth, Throat Denies: throat pain, neck pain or change in hearing Cardiovascular Denies: chest pain, palpitations or dyspnea Respiratory Denies: dyspnea, cough or wheezing Gastrointestinal Denies: abdominal pain, nausea, vomiting or constipation Genitourinary Reports: change in libido; Denies: dysuria or urinary frequency Musculoskeletal Denies: back pain, neck pain, joint pain or muscle weakness Integumentary/Breast Denies: rash or new lesions Neurological Denies: headache(s), dizziness or confusion Endocrine Reports: change in libido; Denies: fatigue or excessive sweating Hematologic/Lymphatic Denies: easy bruising or easy bleeding Allergic/Immunologic Denies: wheezing Exam Mental Status Exam - Psych Appearance casually dressed and no apparent distress Attitude cooperative and calm Activity/Motor Behavior MSE activity/motor behavior finding no adventitious movements Speech regular rate, regular volume and regular prosody Mood OK Affect congruent Thought Process linear, logical and coherent Thought Content no delusions a (more content not included)... Normal [facility] MR/BMS.BPon 11-02-2024 MR/BMS.BP [address], [address] [place] [address] OFFICE VISIT Date of Service: 11/02/24 MR#: [id number] Acct: [id number] Name: ELIZA PEREZ Rep #: [id number] : 1970 Provider: Dr. Earl Garcia se, DO Age/Sex: 54/F Location: [facility]. Status: Signed Intake Vital Signs 08/05/24 09:31 10/02/24 15:00 11/02/24 09:03 Height 5 ft 4 in 5 ft 4 in 5 ft 4 in BP Intake Visit Reasons: 3 M FU Allergies ketamine Adverse Reaction (Verified 10/02/24 14:51) Nausea/Vom/Diarrhea PFSH Medical History Anxiety disorder, unspecified Insomnia PMDD (premenstrual dysphoric disorder) GI bleed Small bowel obstruction due to adhesions Surgical History History of salpingectomy H/O dilation and curettage History of abdominal surgery History of endometrial ablation History of hysterectomy History of laparoscopy ( 10/2018) Family History Mother Hypertension Hyperlipidemia Osteopenia Father Esophageal cancer Daughter ADHD Daughter Anxiety Social History household members: spouse housing: house current occupational status: employed 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 Has started vilazodone and feels like her irritability is well controlled. Has been looking in to alternative causes to why she is so tired like podcasts and supplements. Lunesta did not work so has returned back to doxepin. With this is able to fall asleep, she does wake up around 2-3 am. Has noticed that with estrogen ring she had some reduced hot flashes but still has problems staying asleep. Denies significant side effects from vilazodone. Has been told that she has some osteoporosis. Denies SI/HI or AVH. Did have a good holiday season and got to see her son. Thinks that she has been gaining weight overall. Review of Systems Constitutional Denies: fever(s), chills, change in weight or fatigue Eyes Denies: change in vision or blurry vision Ears, Nose, Mouth, Throat Denies: throat pain, neck pain or change in hearing Cardiovascular Denies: chest pain, palpitations or dyspnea Respiratory Denies: dyspnea, cough or wheezing Gastrointestinal Reports: diarrhea; Denies: abdominal pain, nausea, vomiting or constipation Genitourinary Reports: change in libido; Denies: dysuria or urinary frequency Musculoskeletal Denies: back pain, neck pain, joint pain or muscle weakness Integumentary/Breast Denies: rash or new lesions Neurological Denies: headache(s), dizziness or confusion Endocrine Reports: change in libido; Denies: fatigue or excessive sweating Hematologic/Lymphatic Denies: easy bruising or easy bleeding Allergic/Immunologic Denies: wheezing Exam Mental Status Exam - Psych Appearance casually dressed and no apparent distress Attitude cooperative and calm Activity/Motor Behavior MSE activity/motor behavior finding no adventitious movements Speech regular rate, regular volume and regular prosody Mood OK (But no motivation) Affect congruent Thought Process linear, logical and coherent Thought Content no delusions and no hallucinations Suicidal Ideation none Homicidal Ideation none Attention intact Concentration intact Sensorium/Orientation awake, alert and oriented x3 Memory/Cognition other (appropriate for stated age) Insight good Judgement good Exam Constitutional Documenting provider has reviewed patient's vital signs: yes Common normals: no acute distress, patient oriented x3 and alert General appearance: well developed Neuro Common normals: patient oriented x3 Sensorium/orientation: alert Gait (neuro): normal gait Assessment Plan Assessment Plan (1) PMDD (premenstrual dysphoric disorder): Plan: - Had sent vilazodone between appointments after having tapered off of vortioxetine. Has been doing fairly well at this time with medication in regards to irritability. - continue at 10 mg ever day - follow with PCP regarding fatigue (2) Insomnia: Plan: - Intermittent (3) Anxiety disorder, unspecified: Plan: - See above Medications: Disc (more content not included)... Normal [facility] Dexa Bone Density Studyon Dexa Bone Density Study [facility] Imaging Services [address] [place] [address] Dexa Bone Density Study MR#: [id number] Acct: [id number] Name: ELIZA PEREZ Rep #: [id number] : 1970 F 54 From: Curt Flores MD PCP: Dr. Ginette Mike DO Status: REG [facility] Study: Dexa Bone Density Study Date of Exam: 10/15/24 Exam# [id number] Ordering Dr: Ginette Mike DO [id number] STUDY: DUAL ENERGY X-RAY ABSORPTIOMETRY / DXA REASON FOR EXAM: Female, 54 years old. Z78.0 -- Postmenopausal status TECHNIQUE: Bone Mineral Density (BMD) measurements of lumbar spine and bilateral hips were obtained. COMPARISON: None. FINDINGS: Lumbar Spine (L1-L4): g/cm2 (0.907) / T-score (-1.8) / Z-score (-0.7) Findings are suggestive of osteopenia with a moderate fracture risk. Left Femur Total: g/cm2 (0.780) / T-score (-1.3) / Z-score (-0.7) Left Femoral Neck: g/cm2 (0.596) / T-score (-2.3) / Z-score (-1.3) Right Femur Total: g/cm2 (0.848) / T-score (-0.8) / Z-score (-0.1) Right Femoral Neck: g/cm2 (0.652) / T-score (-1.8) / Z-score (-0.7) BD/Dexa Bone Density Study IMPRESSION: The patient is considered osteopenic as outlined below according to World [employer] Organization (WHO) criteria with a moderate fracture risk. Reference Information: The T-score is the number of standard deviations above or below the standard which is normal for young adults at their peak bone mineral density. The World Health Organization (WHO) interprets the T-scores as follows: Above -1 Normal bone density Between -1 and -2.5 Osteopenia Equal to / or below -2.5 Osteoporosis As a practical clinical guideline, osteopenia may be graded as follows: Mild -1 through -1.5 Moderate -1.6 through -2.0 Severe -2.1 through -2.4 The Z-score is the number of standard deviations above or below age-matched controls. A Z-score of less than -1.5 would be considered abnormal. References: 1. NIH Osteoporosis and Related Bone Diseases www osteo.org 2. International Society for Clinical Densitometry www iscd.org 3. National Osteoporosis Foundation www nof.org Electronically Signed: Curt Flores MD at 14:16 EST , CC: Dr. Ginette Mike DO Vehicle Monitor Technician: Signed Normal [facility] SCRN MAMM (CAD)W/MUMTAZ BILATo n 10-15-2024 SCRN MAMM (CAD)W/MUMTAZ BILAT [facility] Imaging Services [address] [place] [address] SCRN MAMM (CAD)W/MUMTAZ BILAT MR#: [id number] Acct: [id number] Name: ELIZA PEREZ Rep #: [id number] : 1970 F 54 From: Curt Flores MD PCP: Dr. Ginette Mike DO Status: REG CLI Study: SCRN MAMM (CAD)W/MUMTAZ BILAT Date of Exam: 09/21 04/13 Exam# [id number] Ordering Dr: Iraida Garcia [id number] MAMMOGRAPHY - BILATERAL SCREENING 3-D TOMOSYNTHESIS REASON FOR EXAM: Female, 54 years old. screening PERTINENT HISTORY: No significant family history. TECHNIQUE: 2-D mammograms and 3-D Tomosynthesis of the breast (s) were performed. CAD was performed. COMPARISON: 09/26/2023 FINDINGS: The breast composition is composed of scattered fibroglandular density. Scattered benign calcifications are seen. No dense spiculated masses or suspicious microcalcifications are identified. No architectural distortion is identified. There is no skin thickening or retraction. There has been no significant change since the prior study. Bilateral retroglandular saline implants appear intact. BI/SCRN MAMM (CAD)W/MUMTAZ BILAT IMPRESSION: No mammographic signs of malignancy. Routine yearly mammograms recommended. ASSESSMENT CATEGORY: BIRADS Category 1: Negative. A letter regarding these results will be sent to the patient by the facility within 30 days. FOLLOW UP RECOMMENDATION: Yearly follow up mammogram recommended. (A) Approximately 10% of breast cancers are not detected by mammography. A normal mammogram should not delay biopsy of a clinically suspicious abnormality. Electronically Signed: Curt Flores MD at 19:26 EST , CC: Dr. Ginette Mike DO; Dr. 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 Network Manager Required: No Is patient in pain?: No Allergies ketamine Adverse Reaction (Verified 10/02/24 14:51) Nausea/Vom/Diarrhea Medications ???Medication ???Instructions ???Recorded ???Confirmed ???Type multivitamin 1 ea PO DAILY SUPPLEMENT 10/22/18 10/02/24 History Bacillus coagulans 800 million cell PO 07/02/22 10/02/24 History cell tablet (Digestive Advantage Probiotics-Prebiotic) cholecalciferol (vitamin D3) 10 10 mcg PO DAILY 07/02/22 10/02/24 History mcg (400 unit) capsule magnesium 200 mg tablet 200 mg PO DAILY 07/02/22 10/02/24 History omega-3 375mg-dha,epa cap PO 07/02/22 10/02/24 History 350mg-fish,krill 500mg-lutein,zeax 30mg capsule resveratrol 50 mg capsule mg PO 07/02/22 10/02/24 History vortioxetine 10 mg tablet 10 mg PO DAILY #30 tabs 06/04/24 10/02/24 Rx (Trintellix) eszopiclone 1 mg tablet 1 mg PO QHS #30 tabs 08/13/24 10/02/24 Rx vilazodone 10 mg tablet 10 mg PO QDAY #30 tabs 09/07/24 10/02/24 Rx estradiol 2 mg (7.5 mcg/24 hour) 1 vag ring vaginal [id number] #1 ea 09/30/24 10/02/24 Rx vaginal ring (Estring) Is last menstrual period known: No Post menopausal: Yes Patient : No : No Control Method: Hysterectomy PFSH Medical History Anxiety disorder, unspecified Insomnia PMDD (premenstrual dysphoric disorder) GI bleed Small bowel obstruction due to adhesions Surgical History History of salpingectomy H/O dilation and curettage History of abdominal surgery History of endometrial ablation History of hysterectomy History of laparoscopy ( 10/2018) Family History Mother Hypertension Hyperlipidemia Osteopenia Father Esophageal cancer Daughter ADHD Daughter Anxiety Social History household members: spouse housing: house current occupational status: employed 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 Date Name GA/Weeks Outcome Route Bth Weight Infant Gen Labor Lgth Anesthesia Del Locatn Provider FOB Unknown 1996 Rachel live - full term Unknown 1999 Candelario live - full term Unknown 2003 Robin live - full term HPI Encounter for routine gynecological examination Details: ELIZA PEREZ is a 54 year old who presents for annual exam. Last PAP: Hyst. History of abnormal PAP: Last mammogram:09/26/23 nl History of abnormal mammogram: no Colon cancer screening: Up to date Other preventative health care screenings: pcp, Dr. Mike Female Reproductive History Menopausal Symptoms: Yes hot flashes, Yes night sweats, No mood changes, Yes difficulty concentrating, Yes sleep problems and Yes change in libido ROS Const Constitutional: Reports as per HPI and night sweats; Denies fatigue, increased appetite, poor appetite, weight gain or weight loss Cardio Card: Denies chest pain Resp Resp: Denies cough or dyspnea GI GI: Reports as per HPI; Denies abdominal pain, bloating, constipation, nausea or vomiting : Reports as per HPI, hot flashes and other; Denies difficulty voiding, dysuria, hematuria, nipple discharge, pelvic pain, prolapse symptoms, urinary frequency, urinary incontinence, urinary urgency, vaginal discharge, vaginal dryness, vaginal odor or vaginal pruritus Skin Skin/Breast: Denies changing lesions, breast mass, breast pain, breast skin changes or nipple discharge Psych Psych: Reports c (more content not included)... Normal [facility] MR/BMS.BPon 08-05-2024 MR/BMS.BP [address], [address] [place] [address] OFFICE VISIT Date of Service: 08/05/24 MR#: [id number] Acct: [id number] Name: ELIZA PEREZ Rep #: [id number] : 1970 Provider: Dr. Earl Garcia se, DO Age/Sex: 54/F Location: [facility].BP Status: Signed Intake Vital Signs 06/04/24 08:59 08/05/24 09:31 Height 5 ft 4 in 5 ft 4 in Weight: 125 lb BMI 21.4 BP 102/68 115/80 Blood Pressure Location Rt brachial Rt brachial Position Sitting Sitting Pulse 85 68 Pulse Source Monitor Monitor BP Intake Visit Reasons: 2 M FU Accompanied by: Self Is patient in pain?: No Allergies ketamine Adverse Reaction (Verified 06/04/24 09:00) Nausea/Vom/Diarrhea Medications ???Medication ???Instructions ???Recorded ???Confirmed ???Type multivitamin 1 ea PO DAILY SUPPLEMENT 10/22/18 08/05/24 History Bacillus coagulans 800 million cell PO 07/02/22 08/05/24 History cell tablet (Digestive Advantage Probiotics-Prebiotic) cholecalciferol (vitamin D3) 10 10 mcg PO DAILY 07/02/22 08/05/24 History mcg (400 unit) capsule magnesium 200 mg tablet 200 mg PO DAILY 07/02/22 08/05/24 History omega-3 375mg-dha,epa cap PO 07/02/22 08/05/24 History 350mg-fish,krill 500mg-lutein,zeax 30mg capsule resveratrol 50 mg capsule mg PO 07/02/22 08/05/24 History estradiol acetate 0.1 mg/24 hr 1 vag ring vaginal [id number] #1 ea 09/26/23 08/05/24 Rx vaginal ring (Femring) vortioxetine 10 mg tablet 10 mg PO DAILY #30 tabs 06/04/24 08/05/24 Rx (Trintellix) suvorexant 20 mg tablet 20 mg PO QHS #10 tabs 07/28/24 08/05/24 Rx Nurse's Note: Only have one more Belsomra sample packet on hand. Requests Rx be sent in ahead of needing medication in the case PA is needed or medication needs ordered by pharmacy. [facility] Medical History (Updated 06/08/24 @ 06:[address] 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 Had been doing well with the use of Belsomra, but had some difficulty with filling. Mood santiago is fair, but feels like she lacks motivation. Has noticed some benefit with modafinil, but feels like it messes with her stomach. Specifically gets diarrhea so has tried to take only half of a tablet when she takes. Again is somewhat beneficial however somewhat hard to tolerate. Has been struggling more often with day to day activities. Describes knowing what she needs to do but the inability to do it. Denies feeling significantly sad and can find jose in things. Sleeps through the night more often than note. Has recently established with Dr. Mike, but most lab work was normal per self report. Feels like vortioxetine is helping with irritability which is a major positive but is unsure if it contributes to low libido either. Denies SI/HI or AVH. Review of Systems Constitutional Denies: fever(s), chills, change in weight or fatigue Eyes Denies: change in vision or blurry vision Ears, Nose, Mouth, Throat Denies: throat pain, neck pain or change in hearing Cardiovascular Denies: chest pain, palpitations or dyspnea Respiratory Denies: dyspnea, cough or wheezing Gastrointestinal Reports: diarrhea; Denies: abdominal pain, nausea, vomiting or constipation Genitourinary Reports: change in libido; Denies: dysuria or urinary frequency Musculoskeletal Denies: back pain, neck pain, joint pain or muscle weakness Integumentary/Breast Denies: rash or new lesions Neurological Denies: headache(s), dizziness or confusion Endocrine Reports: change in libido; Denies: fatigue or excessive sweating Hematol (more content not included)... Normal [facility] TESTOSTERONE [CCL]on 024 Testosterone [Mass/Vol] 25 ng/dL Normal <40 [facility] Comment on above: Result Comment: [facility] [address] [place] [address] Manav Levy III, M.D. [id number] Performed By: #### 2 54795 #### [facility],[address] [place] [address] FOLATESon 06-08-2024 FOLATES 12.3 ng/ml Normal 8.6 - 58.9 [facility] Comment on above: Performed By: #### 2 05796 #### [facility],[address] [place] [address] LIPID PROFILEon 06-08-2024 Cholesterol [Mass/Vol] 224 mg/dL Normal 0 - 240 [facility] Comment on above: Performed By: #### 2 79433 #### [facility],[address] [place] [address] Cholesterol in HDL [Mass/Vol] 99 mg/dL High 40 - 60 [facility] Comment on above: Performed By: #### 2 68743 #### [facility],[address] [place] [address] Cholesterol in LDL [Mass/Vol] 111 mg/dL Normal 0 - 129 [facility] Comment on above: Performed By: #### 2 81072 #### [facility],[address] [place] [address] Cholesterol.total/ Cholesterol in HDL [Mass ratio] 2.3 {ratio} Normal 0.0 - 5.0 [facility] Comment on above: Performed By: #### 2 04117 #### [facility],[address] [place] [address] [address] [facility] Comment on above: Result Comment: LIPI D PROFILE Performed By: #### 2 74336 #### [facility],[address] [place] [address] Triglyceride [Mass/Vol] 72 mg/dL Normal 0 - 150 [facility] Comment on above: Performed By: #### 2 46015 #### [facility],[address] [place], [place] [id number] Testost SerPl-mCncon 024 Testosterone [Mass/Vol] 25 ng/dL Normal <40 [facility] Comment on above: Order Comment: Speci men Type: BLOOD SPECIMEN Ordering Facility: [facility] Address: [address] [place] [address] Performed By: #### 2 986-8 #### [facility] CLIA [id number] [address] [place] [address] [place] VITAMIN B-12on 06-08-2024 Cobalamin (Vitamin B12) [Mass/Vol] 414 pg/mL Normal 193 - 986 [facility] Comment on above: Performed By: #### 2 90894 #### [facility],[address] [place], [place] [id number] CT CARDIAC SCORING WO IV CON TRASTon 02-19-2024 CT CARDIAC SCORING WO IV CONTRAST Interpreted By: Cristiano Jenkins, STUDY: CT CARDIAC SCORING WO IV CONTRAST; 02/19/2024 2:37 pm INDICATION: Signs/Symptoms:HYPERLIPI DEMIA. COMPARISON: None. ACCESSION NUMBER(S): [id number] ORDERING CLINICIAN: GINETTE MIKE TECHNIQUE: Using prospective ECG gating, limited CT scan of the chest for evaluation of coronary arteries was performed without intravenous contrast. Coronary calcium scoring was performed according to the method of Agatston. FINDINGS: The score and distribution of calcium in the coronary arteries is as follows: LM: 0. LAD: 0. LCx: 0. RCA: 0. Total: 0. The visualized segments of the lungs are normally expanded. The visualized mid/lower ascending thoracic aorta measures 2.9 cm in diameter. The heart is normal in size. Trace pericardial effusion is present. No gross evidence of mediastinal or hilar lymphadenopathy is identified. The visualized subdiaphragmatic structures appear grossly intact. Partially imaged left breast implant. IMPRESSION: 1. Coronary artery calcium score of 0*. 2. Additional findings as above. *Coronary artery calcium scoring may be helpful in predicting the risk for future coronary heart disease events. According to the [place] College of [employer] Foundation Clinical Expert Consensus Task Force, such testing provides important prognostic information in patients with more than one coronary heart disease risk factor. The coronary artery calcium score correlates with the annual risk of a non-fatal myocardial infarction or coronary heart disease . Coronary artery score Annual Risk 0-99 0.4% 100-399 1.3% >400 2.4% These three breakpoints correspond to lower, intermediate and high risk states for future coronary events. Such information should be used, along with appropriate clinical judgment, to make decisions regarding the intensity of risk factor management strategies to treat blood lipids and to modify other non-lipid coronary risk factors. Reference: Jamari P et al. Circulation. 2007; 115:402-426 MACRO: None Signed by: Cristiano Jenkins 02/20/2024 11:16 AM Dictation workstation: [id number] [facility] Absolute lymphocyte counton 07-02-2022 Lymphocytes Auto (Unsp spec) [#/Vol] 1.70 10*3/uL 0.83-4.51 [facility] Work Phone: Basophil percentageon 2021 Basophils/100 WBC (Bld) 0.5 % 0-1 [facility] Work Phone: Bilirubin [Mass/Vol] 0.50 mg/dL 0.20-1.00 [facility] Work Phone: Comment on above: For patients on eltr ombopag therapy, use of Dimension [place] TBIL is not recommended. Chloride [Moles/Vol] 107 mmol/L 98-107 [facility] Work Phone: Eosinophils/100 WBC (Bld) 3.1 % 0-5 [facility] Work Phone: Glucose [Mass/Vol] 97 mg/dL 74-106 [facility] Work Phone: Neutrophils (Bld) [#/Vol] 5.0 10*3/uL 2.0-7.7 [facility] Work Phone: Neutrophils/100 WBC (Bld) 68.4 % 47-70 [facility] Work Phone: Potassium [Moles/Vol] 4.3 mmol/L 3.5-5.1 [facility] Work Phone: Protein [Mass/Vol] 7.6 g/dL 6.4-8.2 [facility] Work Phone: Sodium [Moles/Vol] 140 mmol/L 136-145 [facility] Work Phone: WBC (Bld) [#/Vol] 7.4 10*3/uL 4.4-11.0 [facility] Work Phone: Blood erythrocytes count (nu mber/volume)on 07-02-2022 RBC (Bld) [#/Vol] 4.07 10*6/uL 4.2-5.4 [facility] Work Phone: Blood hemoglobin measurement (mass/volume)on 07-02-2022 Hemoglobin (Bld) [Mass/Vol] 13.7 g/dL 12.0-15.0 [facility] Work Phone: Blood lymphocytes/100 leukoc yteson 07-02-2022 Lymphocytes/100 WBC (Bld) 23.1 % 19-41 [facility] Work Phone: Blood monocytes/100 leukocyt eson 07-02-2022 Monocytes/100 WBC (Bld) 4.8 % 0-10 [facility] Work Phone: Blood platelet mean volumeon 07-02-2022 Platelet mean volume (Bld) [Entitic vol] 10.9 fL 6.2-12.0 [facility] Work Phone: Determination of erythrocyte mean corpuscular volume (MCV)on 07-02-2022 MCV (RBC) [Entitic vol] 99.5 fL 81-99 [facility] Work Phone: Hematocrit Auto (Bld) [Volum e fraction]on 07-02-2022 Hematocrit (Bld) [Volume fraction] 40.5 % 37-47 [facility] Work Phone: Iron measurement (mass/mass) on 07-02-2022 Iron (Unsp spec) [Mass/Mass] 92 ug/dL 50-170 [facility] Work Phone: Laboratory - Chemistry and C hemistry - challengeon 07-02-2022 ALP [Catalytic activity/Vol] 48 U/L 45-117 [facility] Work Phone: ALT [Catalytic activity/Vol] 19 U/L 13-56 [facility] Work Phone: CK [Catalytic activity/Vol] 85 U/L 26-192 [facility] Work Phone: CO2 [Moles/Vol] 26.0 mmol/L 21.0-32.0 [facility] Work Phone: Globulin (S) [Mass/Vol] 3.6 g/dL 2.2-4.2 [facility] Work Phone: Magnesium [Mass/Vol] 2.6 mg/dL 1.6-2.6 [facility] Work Phone: Urea nitrogen/Creatinin e [Mass ratio] 23.0 mg/mg 10-20 [facility] Work Phone: Laboratory - Hematology and Cell countson 07-02-2022 Erythrocyte distribution width (RBC) [Entitic vol] 46.4 fL 35.1-43.9 [facility] Work Phone: Erythrocyte distribution width (RBC) [Ratio] 12.7 % 11.6-14.6 [facility] Work Phone: Immature granulocytes/100 WBC (Bld) 0.100 % 0.0-0.9 [facility] Work Phone: Comment on above: IG% - Immature Granu locytes (promyelocytes, myelocytes and metamyelocytes) > 1% indicates that a LEFT SHIFT is Present. MCH (RBC) [Entitic mass] 33.7 pg 27.0-32.0 [facility] Work Phone: Nucleated RBC/100 WBC (Bld) [Ratio] 0 % 0-5 [facility] Work Phone: MCHC Auto (RBC) [Mass/Vol]on 07-02-2022 MCHC (RBC) [Mass/Vol] 33.8 g/dL 32-36 [facility] Work Phone: No Panel Informationon 07-02 Estimated GFR (MDRD) Amer 99 mL/min >60 [facility] Work Phone: Comment on above: GFR Calc Estimated GFR (MDRD) Non-Af Amer 82 mL/min >60 [facility] Work Phone: Comment on above: Non- GFR Calc Total Iron Binding Capacity 316 ug/dL 250-450 [facility] Work Phone: Vitamin D 25-Hydroxy 63.9 ng/mL [facility] Work Phone: Comment on above: Vitamin D 25(OH) Sta tus Range Deficiency <20 ng/mL (50nmol/L) Insufficiency 20 - 30 ng/mL (50 - 75 nmol/L) Sufficiency 30 - 100 ng/mL (75 - 250 nmol/L) Toxicity >100 ng/mL (>250 nmol/L) Platelets bldon 07-02-2022 Platelets (Bld) [#/Vol] 259 10*3/uL 150-450 [facility] Work Phone: Serum or plasma albumin inder urement (mass/volume)on 07-02-2022 Albumin [Mass/Vol] 4.0 g/dL 3.2-5.0 [facility] Work Phone: Serum or plasma albumin/glob ulin mass ratioon 07-02-2022 Albumin/Globulin [Mass ratio] 1.1 {ratio} 0.9-2.4 [facility] Work Phone: Serum or plasma calcium inder urement (mass/volume)on 07-02-2022 Calcium [Mass/Vol] 9.3 mg/dL 8.5-10.1 [facility] Work Phone: Serum or plasma creatinine m easurement (mass/volume)on 07-02-2022 Creatinine [Mass/Vol] 0.78 mg/dL 0.55-1.02 [facility] Work Phone: Comment on above: The validity of the calculated GFR & GFRAA in patients over 70 years has not been determined. Clinical correlation is essential. Serum or plasma iron saturat ion measurement (mass fraction)on 07-02-2022 Iron saturation [Mass fraction] 29.1 % 15.0-55.0 [facility] Work Phone: Serum or plasma urea nitroge n measurement (mass/volume)on 07-02-2022 Urea nitrogen [Mass/Vol] 18 mg/dL 7-18 [facility] Work Phone: Thin prep Papanicolaou smear with manual screeningon 07-02-2022 Thin prep Papanicolaou smear with manual screening 16 U/L 15-37 [facility] Work Phone: Thin prep Papanicolaou smear with manual screening 7 5-15 [facility] Work Phone: CBC panel Auto (Bld)on 11-17 Absolute nRBC <0.01 <0.01 k/uL [facility] Erythrocyte distribution width (RBC) [Ratio] 12.6 % 11.5 - 15.0 % [facility] Hematocrit (Bld) [Volume fraction] 46.2 % High 36.0 - 46.0 % [facility] Hemoglobin (Bld) [Mass/Vol] 15.2 g/dL 11.5 - 15.5 g/dL [facility] MCH (RBC) [Entitic mass] 33.3 pG 26.0 - 34.0 pG [facility] MCHC (RBC) [Mass/Vol] 32.9 g/dL 30.5 - 36.0 g/dL [facility] MCV (RBC) [Entitic vol] 101.3 fL High 80.0 - 100.0 fL [facility] Platelet mean volume (Bld) [Entitic vol] 11.0 fL 9.0 - 12.7 fL [facility] Platelets (Bld) [#/Vol] 306 10*3/uL 150 - 400 k/uL [facility] RBC (Bld) [#/Vol] 4.56 10*6/uL 3.90 - 5.2 0 m/uL [facility] WBC (Bld) [#/Vol] 5.99 10*3/uL 3.70 - 11. 00 k/uL [facility] Comprehensive metabolic 2000 panelon 11-17-2021 Albumin [Mass/Vol] 4.9 g/dL 3.9 - 4.9 g/dL [facility] ALP [Catalytic activity/Vol] 55 U/L 34 - 123 U/L [facility] ALT [Catalytic activity/Vol] 15 U/L 7 - 38 U/L [facility] Anion gap [Moles/Vol] 10 mmol/L 9 - 18 mmol/L [facility] AST [Catalytic activity/Vol] 26 U/L 13 - 35 U/L [facility] Bilirubin [Mass/Vol] 0.6 mg/dL 0.2 - 1.3 mg/dL [facility] Calcium [Mass/Vol] 9.8 mg/dL 8.5 - 10. 2 mg/dL [facility] Chloride [Moles/Vol] 102 mmol/L 97 - 105 mmol/L [facility] CO2 [Moles/Vol] 27 mmol/L 22 - 30 mmol/L [facility] Creatinine [Mass/Vol] 0.83 mg/dL 0.58 - 0.96 mg/dL [facility] GFR/1.73 sq M.predicted among blacks MDRD (S/P/Bld) [Vol rate/Area] mL/min/{1.73_m2} [facility] GFR/1.73 sq M.predicted among non-blacks MDRD (S/P/Bld) [Vol rate/Area] mL/min/{1.73_m2} [facility] Glucose [Mass/Vol] 89 mg/dL 74 - 99 mg/dL [facility] Potassium [Moles/Vol] 4.6 mmol/L 3.7 - 5.1 mmol/L [facility] Protein [Mass/Vol] 7.7 g/dL 6.3 - 8.0 g/dL [facility] Sodium [Moles/Vol] 139 mmol/L 136 - 144 mmol/L [facility] Urea nitrogen [Mass/Vol] 18 mg/dL 7 - 21 mg/dL [facility] Lipid 1996 panelon Cholesterol [Mass/Vol] 256 mg/dL High <200 mg/dL [facility] Cholesterol in HDL [Mass/Vol] 86 mg/dL >39 mg/dL [facility] Cholesterol in LDL [Mass/Vol] 148 mg/dL High <100 mg/dL [facility] Cholesterol in LDL/Cholesterol in HDL [Mass ratio] 1.72 {ratio} <2.54 [facility] Cholesterol in VLDL [Mass/Vol] 22 mg/dL <30 mg/dL [facility] Cholesterol non HDL [Mass/Vol] 170 mg/dL High <130 mg/dL [facility] Cholesterol.total/ Cholesterol in HDL [Mass ratio] 2.98 {ratio} <5.10 [facility] Fasting Time 12 hrs [facility] Triglyceride [Mass/Vol] 109 mg/dL <150 mg/dL [facility] Vital Signs Date Time Vital Sign Value Performing Clinician Faci lity 07-02-2022 10:40-0400 Body height 161.[address] Tino Fortune Work Phone: [facility] Work Phone: 07-02-2022 10:40-0400 Body mass index (BMI) [Ratio] 20.2 kg/m2 Dr. Tino Fortune Work Phone: [facility] Work Phone: 07-02-2022 10:40-0400 Body temperature 98 [degF] Dr. Tino Fortune Work Phone: [facility] Work Phone: 07-02-2022 10:40-0400 Body weight 52.[address] Tino Fortune Work Phone: [facility] Work Phone: 07-02-2022 10:40-0400 Diastolic blood pressure 70 mm[Hg] Dr. Tino Fortune Work Phone: [facility] Work Phone: 07-02-2022 10:40-0400 Heart rate 65 /min Dr. Tino Fortune Work Phone: [facility] Work Phone: 07-02-2022 10:40-0400 Respiratory rate 16 /min Dr. Tino Fortune Work Phone: [facility] Work Phone: 07-02-2022 10:40-0400 SaO2% (BldA) [Mass fraction] 98 % Dr. Tino Fortune Work Phone: [facility] Work Phone: 07-02-2022 10:40-0400 Systolic blood pressure 100 mm[Hg] Dr. Tino Fortune Work Phone: [facility] Work Phone: Encounters Encounter Date Encounter Type Care Provider Facility Start: 07-14-2025 End: 07-14-2025 ambulatory Earl L Seese Facility:[facility] Start: 05-11-2025 End: 05-11-2025 ambulatory Earl L Seese Facility:[facility] Start: 02-18-2025 End: 02-18-2025 ambulatory Earl L Seese Facility:[facility] Start: 11-02-2024 End: 11-02-2024 ambulatory Earl L Seese Facility:[facility] Start: 10-15-2024 End: 10-15-2024 ambulatory Ginette Fast Facility:[facility] Start: 10-07-2024 End: 10-12-2024 ambulatory Tino Fortune MD Work Phone: Internal Medicine [facility] Start: 10-02-2024 End: 10-02-2024 ambulatory Iraida Garcia Facility:[facility] Start: 08-05-2024 End: 08-05-2024 ambulatory Earl L Seese Facility:[facility] Start: 06-08-2024 End: 06-08-2024 ambulatory GINETTE DO FAST [facility] Start: 02-19-2024 End: 02-20-2024 ambulatory GINETTE A FAST [facility] Start: 02-19-2024 End: 02-19-2024 Subsequent hospital visit by physician Abelino Huang 1 [facility] Comment on above: Hyperlipidemia, unsp ecified Start: 10-30-2023 ambulatory Tino shannon MD Work Phone: Internal [facility] [place] Start: 11-21-2022 ambulatory Tino shannon MD Work Phone: Internal Medicine [facility] Start: 07-12-2022 Refill Tino shannon MD Work Phone: Internal [facility] Comment on above: Refill Request Start: 07-02-2022 End: 07-02-[address] Tino Fortune Work Phone: [facility] Work Phone: Start: 07-02-2022 End: 07-02-[address] Tino Fortune Work Phone: [facility] [place] Start: 07-02-2022 End: 07-02-[address] Tino Fortune Work Phone: [facility] Internal Medicine Start: 02-14-2022 Telephone encounter Tino manzanares MD Work Phone: Internal Medicine [place] Comment on above: Gastro referral to Teodroa Dominguez Start: 11-17-2021 End: 11-17-2021 Patient encounter procedure Tino Fortune MD Work Phone: Internal Medicine [place] Comment on above: Routine medical exam (Primary Dx); Psychophysiological insomnia; Need for vaccination; Screening, lipid; Encounter for screening for diabetes mellitus; Encounter for long-term current use of medication Start: 11-17-2021 End: 11-17-2021 Patient encounter status Tino Fortune MD Work Phone: Internal [facility] Procedures Date Procedure Procedure Detail Performing Clinician Start: 02-19-2024 CT CARDIAC SCORING W O IV CONTRAST GINETTE FAST Start: 09-08-2022 Colonoscopy Tino escamilla MD Work Phone: Start: 11-17-2021 Lipid 1996 panel - S sincere or Plasma Tino Fortune MD Work Phone: Start: 08-11-2020 Mammography Tino escamilla MD Work Phone: Plan of Treatment Date Care Activity Detail Author Start: 11-17-2031 DTaP/Tdap/Td Vaccine s (3 - Td or Tdap) DTaP/Tdap/Td Vaccines (3 - Td or Tdap) [facility] Start: 11-17-2031 Urine microalbumin profile [facility] Start: 09-08-2027 Colonoscopy COLONOSCOPY [facility] Start: 09-08-2027 COLORECTAL CANCER SCREENING COLORECTAL CANCER SCREENING [facility] Start: 09-08-2027 Screening for malign ant neoplasm of colon [facility] Start: 11-17-2026 Lipid panel Lipid Screening [facility] Start: 11-17-2026 LIPID SCREEN LIPID SCREEN [facility] Start: 11-17-2024 DIABETES SCREEN DIABETES SCREEN [facility] Start: 11-17-2024 Diabetes Screening Diabetes Screenin g [facility] Start: 06-21-2024 Covid-19 Vaccine () Covid-19 Vaccine () [facility] Start: 06-21-2024 Influenza vaccination U [facility] Start: 06-21-2023 Covid-19 Vaccine ( season) Covid-19 Vaccine () [facility] Start: 06-21-2023 Influenza vaccination Influenza Vacc ine (#1) [facility] Start: 11-17-2022 SHINGRIX VACCINE (1 of 2) SHINGRIX VACCINE (1 of 2) [facility] Comment on above: Postponed from 04/15 (Declined at this time) Start: 07-02-2022 Patient referral [facility] Work Phone: Start: 06-21-2022 Influenza vaccination [facility] Start: 05-17-2022 COLORECTAL CANCER SCREENING COLORECTAL CANCER SCREENING [facility] Comment on above: Postponed from 04/15 (Currently Scheduled) Start: 10-16-2021 COVID-19 VACCINE (4 - Booster for Moderna series) COVID-19 VACCINE (4 - Booster for Moderna series) [facility] Start: 08-11-2021 Mammography MAMMOGRAM [facility] Start: 08-11-2021 Screening for malign ant neoplasm of breast Mammogram Screening [facility] Start: 2020 Pneumococcal Vaccine : 50+ (1 of 1 - PCV) Pneumococcal Vaccine: 50+ (1 of 1 - PCV) [facility] Start: 2020 SHINGRIX VACCINE (1 of 2) SHINGRIX VACCINE (1 of 2) [facility] Start: 2020 Zoster Vaccines (1 of 2) Zoste r Vaccines (1 of 2) [facility] Start: 2015 COLOGUARD (FIT-DNA) COLOGUARD (FIT-D NA) [facility] Start: 2015 Colonoscopy COLONOSCOPY [facility] Start: 2015 COLORECTAL CANCER SCREENING COLORECTAL CANCER SCREENING [facility] Start: [address] COLONOGRAPHY [facility] Start: 2015 FECAL OCCULT BLOOD FECAL OCCULT BLOO D [facility] Start: 2015 Screening for malign ant neoplasm of colon [facility] Start: 2015 SIGMOIDOSCOPY SIGMOIDOSCOPY [facility] Start: 2010 Screening for malign ant neoplasm of breast Mammogram [facility] Start: 09-01-2009 MMR Vaccines (1 of 1 - Standard series) MMR Vaccines (1 of 1 - Standard series) [facility] Start: 1991 Screening for malign ant neoplasm of cervix [facility] Start: 1989 Hepatitis B Vaccine (1 of 3 - 19+ 3-dose series) Hepatitis B Vaccine (1 of 3 - 19+ 3-dose series) [facility] Start: 1989 Hepatitis B Vaccines (1 of 3 - 19+ 3-dose series) Hepatitis B Vaccines (1 of 3 - 19+ 3-dose series) [facility] Start: 1988 Anxiety Screening Anxiety Screening [facility] Start: 1988 Hepatitis C screening Hepatitis C [facility] Start: 1970 HEPATITIS B (1 of 3 - 3-dose series) HEPATITIS B (1 of 3 - 3-dose series) [facility] Start: 1970 Hepatitis B Vaccine (1 of 3 - 3-dose series) Hepatitis B Vaccine (1 of 3 - 3-dose series) [facility] Start: 1970 HIV screening HIV Screening [facility] Start: 1970 Lipid panel Lipid Panel [facility] Start: 1970 Screening for malign ant neoplasm of colon [facility] Start: 1970 Yearly Adult Physical Yearly Adult P [facility] End: 02-19-2024 CT for calcium scoring WO contrast and CTA W contrast IV Heart and coronary arteries [facility] Service Area Work Phone: Comment on above: Once for 1 Occurrenc es starting 02/19/2024 until 02/19/2024 End: 11-06-2025 DBT Breast - bilateral screening DAVID SCREENING W [facility] Radiology Routine Encounter for screening mammogram for breast cancer 1 Occurrences starting 10/07/2024 until 11/06/2025 [facility] Work Phone: Comment on above: 1 Occurrences starti ng 10/07/2024 until 11/06/2025 End: 12-21-2023 DAVID SCREENING DAVID SCREENING Radiology Routine Encounter for screening mammogram for breast cancer 1 Occurrences starting 11/21/2022 until 12/21/2023 [facility] Work Phone: Comment on above: 1 Occurrences starti ng 11/21/2022 until 12/21/2023 End: 11-28-2024 DAVID SCREENING DAVID SCREENING Radiology Routine Encounter for screening mammogram for breast cancer 1 Occurrences starting 10/30/2023 until 11/28/2024 [facility] Work Phone: Comment on above: 1 Occurrences starti ng 10/30/2023 until 11/28/2024 Patient referral [facility] Work Phone: [facility] Immunizations Immunization Date Immunization Notes Care Provider Fa moy 11-17-2021 tetanus toxoid, redu sdira diphtheria toxoid, and acellular pertussis vaccine, adsorbed Tino Fortune MD Work Phone: [facility] 08-21-2021 Covid (Moderna) Dr. Tino manzanares Work Phone: [facility] Work Phone: 12-02-2020 Covid (Moderna) Dr. Tino manzanares Work Phone: [facility] Work Phone: 11-01-2020 Covid (Moderna) Dr. Tino manzanares Work Phone: [facility] Work Phone: 10-07-2015 influenza, injectabl e, quadrivalent, contains preservative Tino Fortune MD Work Phone: [facility] 10-07-2015 influenza, seasonal, injectable Dr. Tino Fortune Work Phone: [facility] Work Phone: 10-07-2015 influenza virus vaccine, unspecified formulation Tino Fortune MD Work Phone: [facility] 11-07-2012 influenza virus vaccine, unspecified formulation Tino Fortune MD Work Phone: [facility] 03-06-2009 diphtheria and tetan us toxoids, adsorbed for pediatric use Tino Fortune MD Work Phone: [facility] Work Phone: 09-02-2007 influenza, seasonal, injectable Dr. Tino Fortune Work Phone: [facility] Work Phone: 07-08-1995 hepatitis B vaccine, pediatric or pediatric/adolescent dosage Dr. Tino Fortune Work Phone: [facility] Work Phone: 07-02-1994 hepatitis B vaccine, pediatric or pediatric/adolescent dosage Dr. Tino Fortune Work Phone: [facility] Work Phone: 05-29-1994 hepatitis B vaccine, pediatric or pediatric/adolescent dosage Dr. Tino Forutne Work Phone: [facility] Work Phone: Payers Date Payer Category Payer Self-pay [id number] 2023 Unknown [id number] 2020 Unknown MMO MMO [employer] [id number] 2020-Present [phone] [address] [place] [address] PPO [id number] 2020 Unknown [id number] 1970 Unknown [id number] 1970 Unknown [id number] Unknown MEL [id number] Unknown [id number] Unknown [id number] Unknown [id number] Unknown [id number] Unknown [id number] Unknown [id number] Unknown [id number] Social History Date Type Detail Facility Start: 02-04-2012 Tobacco smoking status DCIS Never smoked tobacco [facility] Work Phone: Start: 02-04-2019 Alcohol intake Current drinke r of alcohol (finding) [facility] Start: 02-04-2019 End: 09-28-2020 Alcohol intake [facility] Start: 06-15-2015 History SDOH Alcohol Comment Occasionally [facility] Start: 1970 Sex Assigned At Not on file [facility] Start: 10-18-2021 End: 02-19-2024 Exposure to SARS-CoV-2 (event) Not sure [facility] Start: 07-02-2022 Tobacco smoking status NHIS Unknown if ever smoked [facility] Work Phone: Start: 1970 Sex Assigned At Female [facility] Work Phone: Start: 02-04-2012 Tobacco use and exposure Smokeless tobacco non-user [facility] Start: 02-04-2019 End: 09-28-2020 Tobacco use panel [facility] National Score (1-100), lower number is lower risk Not on file [facility] Medical Equipment Procedure Code Equipment Code Equipment Origin al Text Equipment Identifier Dates Exploratory laparotomy SALVADOR,[id number] FDA Start: 10-25-2018 Clinical Notes 04-26-2016 to 10-07-2024 Telephone Encounter - Tino Fortune MD - 07/12/2022 3:40 PM EDTTelephone Encounter - Lexi Marquez LPN - 07/12/2022 3:18 PM Emmanuel Fortune MD - 11/17/2021 8:13 AM EST Note Date & Type Note Facility 10-07-2024 Note Patient Outreach (IN TMMN) ELIZA PEREZ ([id number]) 1970 F Date Time Provider Department 10/07/24 TINO FORTUNE During your visit today, we recorded the following information about you: Allergies As of Date: 10/07/2024 Noted Allergy Reaction environmental [Other] 08/01/2005 KETAMINE 06/05/2011 14 - Other: See Comments Comments: dysphoria Date Reviewed: 11/17/2021 Reviewed by: Sarah Odlel LPN - Fully Assessed Visit Diagnosis:Encounter for screening mammogram for breast cancer [Z12.31] Order(s):DAVID SCREENING W MUMTAZ [[id number]] Order #: [id number] FUTURE Prescriptions as of 10/12/2024 - zolpidem (AMBIEN) 10 mg Take 1 tablet by mouth at bedtime as needed for up to 90 days. - buPROPion XL (WELLBUTRIN XL) 150 mg 24 hr tablet Take 1 tablet by mouth once daily. - Ox Bile 125 mg ([employer]) Take 1 capsule three times daily with meals, or as directed by a healthcare practitioner. - Doxycycline Monohydrate (ORACEA) 40 mg capsule Take 1 capsule by mouth once daily. - MULTIVITAMIN TAB Take one(1) tablet daily. Problem List As Of Date 10/07/2024 Noted Resolved ESOPHAGEAL REFLUX [K21.9] Depressive disorder [F32.A] 10/07/2015 Occipital neuralgia of right side [M54.81] 04/26/2016 02/04/2018 Fatigue [R53.83] 02/19/2019 Knee pain [M25.569] 02/19/2019 Encounter Status:Closed by Simplist [email or web address] on 10/12/24 [facility] 10-30-2023 Note Patient Outreach (IN [facility]) ELIZA PEREZ ([id number]) 1970 F Date Time Provider Department 10/30/23 TINO FORTUNE During your visit today, we recorded the following information about you: Allergies As of Date: 10/30/2023 Noted Allergy Reaction environmental [Other] 08/01/2005 KETAMINE 06/05/2011 14 - Other: See Comments Comments: dysphoria Date Reviewed: 11/17/2021 Reviewed by: Sarah Odell LPN - Fully Assessed Visit Diagnosis:Encounter for screening mammogram for breast cancer [Z12.31] Order(s):[facility] SCREENING [[id number]] Order #: [id number] FUTURE Prescriptions as of 11/04/2023 - zolpidem (AMBIEN) 10 mg Take 1 tablet by mouth at bedtime as needed for up to 90 days. - buPROPion XL (WELLBUTRIN XL) 150 mg 24 hr tablet Take 1 tablet by mouth once daily. - Ox Bile 125 mg ([employer]) Take 1 capsule three times daily with meals, or as directed by a healthcare practitioner. - Doxycycline Monohydrate (ORACEA) 40 mg capsule Take 1 capsule by mouth once daily. - MULTIVITAMIN TAB Take one(1) tablet daily. Problem List As Of Date 10/30/2023 Noted Resolved ESOPHAGEAL REFLUX [K21.9] Depressive disorder [F32.A] 10/07/2015 Occipital neuralgia of right side [M54.81] 04/26/2016 02/04/2018 Fatigue [R53.83] 02/19/2019 Knee pain [M25.569] 02/19/2019 Encounter Status:Closed by Simplist, PRODUSER on 11/04/23 [facility] 07-12-2022 Miscellaneous Notes The following approved medication requests have been transmitted electronically. Requested Prescriptions Signed Prescriptions Disp Refills zolpidem (AMBIEN) 10 mg 30 tablet 0 Sig: Take 1 tablet by mouth at bedtime as needed for up to 90 days. Authorizing Provider: TINO FORTUNE MD Needs yearly scheduled (last seen 10/2021 Patient has been identified by name and date of : Yes Patient phones for refill(s): Requested Prescriptions Pending Prescriptions Disp Refills zolpidem (AMBIEN) 10 mg 30 tablet 0 Sig: Take 1 tablet by mouth at bedtime as needed for up to 90 days. Date of last office visit in primary care: 11/17/21 Please advise. Thank you. Lexi Marquez LPN documented in this encounter [facility] 02-14-2022 Miscellaneous Notes Patient calling asking that Gastroenterology referral be faxed to Dr Dominguez office at [phone]. Printed last office notes 10/2021, face sheet, consult, insurance card copy faxed as requested. documented in this encounter [facility] 11-17-2021 History of Present illness Narrative This note was created using [employer]. Subjective Eliza Perez is a 51 year old female. HISTORY Eliza Perez is a 51 year old lady here for yearly exam and follow up appointment. Tired a lot. Wants to take a nap n the afternoon. Lack of motivation but gets things done anyway. Not new. Bloodwork fine over the years. Gets enough slep she tings but some insomnia stage now. Prior 7 to 8 hours. But now. wakes up with nights sweats. Before could sleep through the the night but now wakes up sometimes 30 to 120 minutes some nights (3 to 4 days a week. Ambien only needed with traveling typically. . 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 PAST MEDICAL HISTORY Diagnosis Date Dysmenorrhea Esophageal reflux Malaise and fatigue Occipital neuralgia of right side 04/26/2016 Premenstrual tension syndromes Preop exam for internal medicine Current Outpatient Medications Medication Sig Ox Bile 125 mg ([employer]) Take 1 capsule three times daily with meals, or as directed by a healthcare practitioner. zolpidem (AMBIEN) 10 mg tab Take 1 tablet by mouth at bedtime as needed for up to 90 days. sertraline (ZOLOFT) 100 mg tablet Take 1 tablet by mouth once daily. Doxycycline Monohydrate (ORACEA) 40 mg capsule Take 1 capsule by mouth once daily. MULTIVITAMIN TAB Take one(1) tablet daily. No current facility-administered medications for this visit. ALLERGIES Allergen Reactions Environmental [Othe* Ketamine Other: See Comments dysphoria FAMILY HISTORY Problem Relation Age of Onset Lipids Mother High Cholesterol Cancer Father Liver other (esophageal cancer) Father Heart Maternal Grandmother CHF Social History Tobacco Use Smoking status: Never Smoker Smokeless tobacco: Never Used Substance Use Topics Alcohol use: Yes Alcohol/week: 2.5 standard drinks Types: 3 Cans of beer per week Comment: Occasionally Drug use: No Review of Systems Objective BP (P) 108/64 (BP Site: Left Arm, BP Position: Sitting, BP Cuff Size: Regular Adult) Pulse (P) 84 Resp (P) 16 Ht (P) 162.6 cm (5' 4) Wt (P) 52.6 kg (116 lb) LMP 07/24/2012 BMI (P) 19.91 kg/m Last 5 Encounter BP Readings: Date: BP: 10/15/2019 114/71 02/19/2019 108/70 01/28/2019 109/66 02/04/2018 98/54 07/26/2016 88/56 Last 5 Encounter Wt Readings: Date: Wt: 10/15/2019 54.6 kg (120 lb 6.4 oz) 02/19/2019 52.6 kg (116 lb) 01/28/2019 50.8 kg (112 lb) 02/04/2018 53.3 kg (117 lb 9.6 oz) 07/26/2016 51.7 kg (114 lb) Physical Exam Vitals reviewed. Constitutional: Appearance: Normal appearance. She is well-developed. HENT: Head: Normocephalic and atraumatic. Right Ear: External ear normal. Left Ear: External ear normal. Nose: Nose normal. Eyes: Conjunctiva/sclera: Conjunctivae normal. Neck: Thyroid: No thyromegaly. Vascular: No carotid bruit. Cardiovascular: Rate and Rhythm: Normal rate and regular rhythm. Pulses: Normal pulses. Heart sounds: Normal heart sounds. No murmur heard. No friction rub. No gallop. Pulmonary: Effort: Pulmonary effort is normal. Breath sounds: Normal breath sounds. Abdominal: General: Bowel sounds are normal. There is no distension. Palpations: Abdomen is soft. There is no mass. Tenderness: There is no abdominal tenderness. Musculoskeletal: General: No deformity. Normal range of motion. Lymphadenopathy: Cervical: No cervical adenopathy. Skin: General: Skin is warm and dry. Coloration: Skin is not jaundiced or pale. Findings: No rash. Neurological: General: No focal deficit present. Mental Status: She is alert and oriented to person, place, and time. Cranial Nerves: No cranial nerve deficit. Sensory: No sensory deficit. Motor: No abnormal muscle tone. Coordination: Coordination normal. Deep Tendon Reflexes: Reflexes normal. Psychiatric: Attention and Perception: Attention and perception normal. Mood and Affect: Mood and affect normal. Speech: Speech normal. Behavior: Behavior normal. Thought Content: Thought content normal. Cognition and Memory: Cognition and memory normal. Judgment: Judgment normal. Assessment and Plan Encounter Diagnosis ICD-10-CM 1. Routine medical exam Z00.00 COMP METABOLIC PANEL CBC LIPID PANEL BASIC 2. Psychophysiological insomnia F51.04 zolpidem (AMBIEN) 10 mg due to travel 3. Need for vaccination Z23 TDAP VACCINE AGE 7+ IM 4. Screening, lipid Z13.220 LIPID PANEL BASIC 5. Encounter for screening for diabetes mellitus Z13.1 COMP METABOLIC PANEL 6. Encounter for long-term current use of medication Z79.899 COMP METABOLIC PANEL CBC LIPID PANEL BASIC Patient here for yearly exam and follow up. Above issues addressed with patient. Patient involved in shared decision making for management of medical issues. History and medications reviewed. Epic updated as needed Refills and/or prescriptions taken care of and meds adjusted as indicated after reviewed history, exam and labs. Health Maintenance reviewed. Updated record and/or ordered tests as recorded. Encouraged on efforts at healthy diet and regular exercise and adequate sleep. Tino Fortune MD documented in this encounter [facility] 04-26-2016 History of Past i llness Narrative Problem Noted Date Resolved Date Occipital neuralgia of right side 04/26/2016 02/04/2018 documented as of this encounter (statuses as of 01/29/2022) [facility] History of Past illness Narrative* Problem Noted Date Resolved Date Occipital neuralgia of right side 04/26/2016 02/04/2018 documented as of this encounter (statuses as of 02/14/2022) [facility] History of Past illness Narrative* Problem Noted Date Resolved Date Occipital neuralgia of right side 04/26/2016 02/04/2018 documented as of this encounter (statuses as of 08/03/2022) [facility] History of Past illness Narrative* Problem Noted Date Resolved Date Occipital neuralgia of right side 04/26/2016 02/04/2018 documented as of this encounter (statuses as of 11/26/2022) [facility] History of Past illness Narrative* Problem Noted Date Diagnosed Date Resolved Date Occipital neuralgia of right side 04/26/2016 02/04/2018 documented as of this encounter (statuses as of 11/04/2023) [facility] note* Diagnosis Routine medical exam- Primary Routine general medical examination at a health care facility Psychophysiological insomnia Persistent disorder of initiating or maintaining sleep Need for vaccination Need for prophylactic vaccination and inoculation against unspecified single disease Screening, lipid Screening for lipoid disorders Encounter for screening for diabetes mellitus Screening for diabetes mellitus Encounter for long-term current use of medication documented in this encounter [facility] note* Diagnosis Onset Date Resolution Status Establishing care with new doctor, encounter for noneactive ADHD noneactive Muscle cramp, nocturnal none active Vitamin D deficiency noneact [facility] Work Phone: Evaluation note* Diagnosis Psychophysiological insomnia Persistent disorder of initiating or maintaining sleep documented in this encounter [facility] note* Diagnosis Encounter for screening mammogram for breast cancer documented in this encounter [facility] note* Diagnosis Encounter for screening mammogram for breast cancer documented in this encounter [facility] note* Diagnosis Hyperlipidemia, unspecified documented in this encounter [facility] Work Phone: Evaluation note* Diagnosis Encounter for screening mammogram for breast cancer documented in this encounter [facility] for referral (narrative)* Diagnostic Procedure Only (Routine) - Pending Review Specialty Diagnoses / Procedures Referred By Marley martinez Referred To Contact [facility] Diagnoses Encounter for screening mammogram for breast cancer Procedures DAVID SCREENING SCREENING MAMMOGRAPHY BI 2-VIEW BREAST INC Tino Hill MD [address] [place] [address] [facility] [place] [address] Referral ID Status Reason Start Date Expiration Date Visits Requested Visits Authorized [id number] Pending Review Auto-Generat ed Referral 11/21/2022 12/21/2023 1 [facility] Diagnostic Procedure Only (Routine) - Pending Review Specialty Diagnoses / Procedures Referred By Marley martinez Referred To Contact [facility] Diagnoses Encounter for screening mammogram for breast cancer Procedures DAVID SCREENING SCREENING MAMMOGRAPHY BI 2-VIEW BREAST INC Tino Hill MD [address] [place] [address] [facility] [address] [place] [address] Referral ID Status Reason Start Date Expiration Date Visits Requested Visits Authorized [id number] Pending Review Auto-Generat ed Referral 10/30/2023 11/28/2024 [facility] Diagnostic Procedure Only (Routine) - New Request Specialty Diagnoses / Procedures Referred By Marley martinez Referred To Contact [facility] Diagnoses Encounter for screening mammogram for breast cancer Procedures DAVID SCREENING W MUMTAZ SCREENING DIGITAL BREAST TOMOSYNTHESIS BI SCREENING MAMMOGRAPHY BI 2-VIEW BREAST INC Tino Hill MD [address] [place] [address] Br [place] [address] Referral ID Status Reason Start Date Expiration Date Visits Requested Visits Authorized [id number] New Request Auto-Generat ed Referral 4 11/06/2025 1 1 [facility] Chief Complaint and Reason for Visit 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, PT NE EDS NPP Reason for Visit Establishing care wi new doctor, encounter for ADHD Muscle cramp, nocturnal Vitamin D deficiency Family History No Family History Records Found Relationship Condition Age at Onset Recorded Date/T javy mother Hypertension Unknown Hyperlipidemia Unknown Osteopenia Unknown father Malignant neoplasm of esophagus Unknown daughter Attention deficit hy peractivity disorder (ADHD) Unknown daughter Anxiety Unknown Advance Directives No Advanced Directives Records Found Advance Directive Response Recorded Date/ Time Living Will Yes October 22 9 2:07pm Power of Mold Operator Yes October 22 2:07pm Reason for Referral Specialty Diagnoses / Procedures Referred By Marley martinez Referred To Contact Radiology Diagnoses Hyperlipidemia, unspecified Procedures CT cardiac scoring wo IV contrast Fast, Ginette Ho DO [address] [facility] [address] [place] [address] Referral ID Status Reason Start Date Expiration Date Visits Requested Visits Authorized [id number] Authorized Perform Procedure 02/07/2024 02/06/2025 1 1 Summary Purpose Additional Source Comments Source Comments (unrecognize d section and content) In the event this informatio n is protected by the Federal Confidentiality of Alcohol and Drug Abuse Patient Records regulations: The Federal rules restrict any use of the information to criminally investigate or prosecute any alcohol or drug abuse patient.[facility] event this information is protected by the Federal Confidentiality of Alcohol and Drug Abuse Patient Records regulations: The Federal rules restrict any use of the information to criminally investigate or prosecute any alcohol or drug abuse patient.[facility] event this information is protected by the Federal Confidentiality of Alcohol and Drug Abuse Patient Records regulations: The Federal rules restrict any use of the information to criminally investigate or prosecute any alcohol or drug abuse patient.[facility] the event this information is protected by the Federal Confidentiality of Alcohol and Drug Abuse Patient Records regulations: The Federal rules restrict any use of the information to criminally investigate or prosecute any alcohol or drug abuse patient.[facility] the event this information is protected by the Federal Confidentiality of Alcohol and Drug Abuse Patient Records regulations: The Federal rules restrict any use of the information to criminally investigate or prosecute any alcohol or drug abuse patient.[facility] the event this information is protected by the Federal Confidentiality of Alcohol and Drug Abuse Patient Records regulations: The Federal rules restrict any use of the information to criminally investigate or prosecute any alcohol or drug abuse patient.[facility] Reason for Visit (unrecogniz ed section and content) Reason Comments Physical Reason Comments Gastro referral to Dr Dominguez Reason Onset Date Comments Refill Request 07/12/2022 Specialty Diagnoses / Procedures Referred By Marley martinez Referred To Contact Radiology Diagnoses Hyperlipidemia, unspecified Procedures CT cardiac scoring wo IV contrast Ginette Mike DO [address] [facility] [address] [place] [address] Referral ID Status Reason Start Date Expiration Date Visits Requested Visits Authorized [id number] Authorized Perform Procedure 02/07/2024 02/06/2025 1 1 Care Teams (unrecognized sec tion and content) Development Expert Relationship Specialty Start Date End Date Tino Fortune MD [address] [place] [address] PCP - General Internal Medicine 02/04/18 Development Expert Relationship Specialty Start Date End Date Tino Fortune MD [address] [place] [address] PCP - General Internal Medicine 02/04/18 Development Expert Relationship Specialty Start Date End Date Tino Fortune MD [address] [place] [address] PCP - General Internal Medicine 02/04/18 Development Expert Relationship Specialty Start Date End Date Tino Fortune MD [address] [place] [address] PCP - General Internal Medicine 02/04/18 Development Expert Relationship Specialty Start Date End Date Tino Fortune MD [address] [place] [address] PCP - General Internal Medicine 02/04/18 Development Expert Relationship Specialty Start Date End Date Ginette Mike DO [address] [address] PCP - General Internal Medicine 02/18/24 Development Expert Relationship Specialty Start Date End Date Tino Fortune MD [address] [place] [address] PCP - General Internal Medicine 02/04/18 Samantha Elam, AVIONIC TECHNICIAN.ANALOG IC DESIGN ENGINEER [address] [place] [address] Placement Officer Internal Medicine 09/28/24 Lona Green AVIONIC TECHNICIAN.PAPER BOX CUTTER [address] [place] [address] Placement Officer Internal Medicine 09/28/24 Goals (unrecognized section and content) Goals may be documented in a n alternate section INFORMATION SOURCE (unrecogn ized section and content) DATE CREATED AUTHOR 02/21/2024 [facility] DATE CREATED AUTHOR AUTHOR'S ORGANIZ ATION 06/10/2024 [facility] DATE CREATED AUTHOR AUTHOR'S ORGANIZ ATION 10/13/2024 [facility] DATE CREATED AUTHOR AUTHOR'S ORGANIZ ATION 07/15/2025 [facility] FOR RECORDS PERTAINING TO PATIENTS WHO ARE OR HAVE BEEN ENROLLED IN A CHEMICAL DEPENDENCY/SUBSTANCEABUSE PROGRAM, SOME INFORMATION MAY BE OMITTED. This clinical summary was aggregated from multiple sources. Caution should be exercised in using it in the provision of clinical care. This summary normalizes information from multiple sources, and as a consequence, information in this document may materially change the coding, format and clinical context of patient data. In addition, data may be omitted in some cases. CLINICAL DECISIONS SHOULD BE BASED ON THE PRIMARY CLINICAL RECORDS. [employer] provides no warranty or guarantee of the accuracy or completeness of information in this document.
== END | disposition home or self-care (01) ==
LOC: OPBI 08:11
PROVIDERS: PCP Internal Medicine; Referring Provider Obstetrics & Gynecology; Visit Provider Obstetrics & Gynecology
DX: Z12.31 Encounter for screening mammogram for malignant neoplasm of breast (principal)
CPT/HCPCS: 77063; 77067